=== PATIENT | male | born 1945 | race Hispanic/Latino ===

== ENCOUNTER → 2016-11-01 | Outpatient (REF) | payer MEDICARE, OTHER ==
[~2016-11-01] MED LIST: /TAMS4CA; AVOD0.5C; GLIP5TAB2; LEVA250T; ROSI4TA; VYTO10TA5
== END ==
LOC: M LAB REF 13:01
PROVIDERS: ATTEND Internal Medicine Nephrology
DX: N18.3 Chronic kidney disease, stage 3 (moderate) (principal); E11.9 Type 2 diabetes mellitus without complications; I10 Essential (primary) hypertension

== ENCOUNTER → 2016-11-12 | Outpatient (CLI) | payer MEDICARE, BC, OTHER ==
--- NOTE | 2016-11-12 13:43 | REP ---
RENAL AND BLADDER ULTRASOUND: Real-time sonographic evaluation of the left kidney performed in this patient status post right nephrectomy. Right renal fossa demonstrates no gross abnormality. Left kidney is normal in size and echotexture measuring 13.3 x 7.0 by 5.6 cm. There is no left renal mass, hydronephrosis or nephrolithiasis. Urinary bladder measures 8.4 x 6.6 x 6.0 cm for a total volume of 217 mL. There appears to be irregular wall thickening at the base of the bladder raising the possibility of bladder mass. After voiding, there is no postvoid residual in the urinary bladder, with complete emptying. IMPRESSION: Right renal fossa grossly unremarkable. Left kidney appears normal. Irregular soft tissue thickening at the base of the bladder, cannot rule out mass in this region. Signed by Dwight Ardon MD 11/13/2016 08:41 A
== END ==
LOC: M RAD 11:56
PROVIDERS: ATTEND Internal Medicine Nephrology
DX: N18.3 Chronic kidney disease, stage 3 (moderate) (principal); I12.9 Hypertensive chronic kidney disease with stage 1 through stage 4 chronic kidney disease, or unspecified chronic kidney disease

== ENCOUNTER → 2016-11-23 | Outpatient (REF) | payer MEDICARE, BC, OTHER | LOC: M SMT 13:43 | PROVIDERS: ATTEND Nurse Practitioner Women's Health | DX: N32.89 Other specified disorders of bladder (principal); Z79.899 Other long term (current) drug therapy; Z85.51 Personal history of malignant neoplasm of bladder | CPT/HCPCS: 81001; 87086; 88108; G0463 ==

== ENCOUNTER → 2019-09-11 | Outpatient (REF) | payer MEDICARE, BC, OTHER ==
[~2019-09-11] MED LIST changes: -/TAMS4CA; +FLOM0.4C39
== END ==
LOC: M SMT 18:02
PROVIDERS: ATTEND Urology
DX: Z85.51 Personal history of malignant neoplasm of bladder (principal)

== ENCOUNTER → 2020-09-12 | Outpatient (REF) | payer MEDICARE, OTHER | LOC: M SMT 18:54 | PROVIDERS: ATTEND Urology | DX: Z85.51 Personal history of malignant neoplasm of bladder (principal) ==

== ENCOUNTER 2021-03-10 03:28 | Emergency (ER) | payer MEDICARE, BC, OTHER ==
[~2021-03-10] VITALS: Ht 175.3 cm; Wt 86.8 kg
[2021-03-10 03:29] VITALS: BP 152/72
--- OUTSIDE RECORDS SUMMARY | 2021-03-10 03:36 | CCD ---
Author Author [facility] Organization [facility] Address Unknown Phone Unavailable Care Team Providers Care Parts Clerk Name Role Phone Maring, Darien PA Unavailable Unavailable Maring, Darien PA Unavailable Unavailable Maring, Darien PA Unavailable Unavailable Maring, Darien PA Unavailable Unavailable Maring, Darien PA Unavailable Unavailable Maring, Darien PA Unavailable Unavailable Maring, Darien PA Unavailable Unavailable Maring, Darien PA Unavailable Unavailable Maring, Darien PA Unavailable Unavailable Maring, Darien PA Unavailable Unavailable Maring, Darien PA Unavailable Unavailable Maring, Darien PA Unavailable Unavailable Maring, Darien PA Unavailable Unavailable Maring, Darien PA Unavailable Unavailable Maring, Darien PA Unavailable Unavailable Maring, Darien PA Unavailable Unavailable Ghada NEVES DPM Unavailable Unavailable Ghada NEVES DPM Unavailable Unavailable Ghada NEVES DPM Unavailable Unavailable Ghada NEVES DPM Unavailable Unavailable Ghada NEVES DPM Unavailable Unavailable Ghada NEVES DPM Unavailable Unavailable Ghada NEVES DPM Unavailable Unavailable Ghada NEVES DPM Unavailable Unavailable Ghada NEVES DPM Unavailable Unavailable Ghada NEVES DPM Unavailable Unavailable Ghada NEVES DPM Unavailable Unavailable Ghada NEVES DPM Unavailable Unavailable Ghada NEVES DPM Unavailable Unavailable Ghada NEVES DPM Unavailable Unavailable Ghada NEVES DPM Unavailable Unavailable PURA R GERRY DPM Unavailable Unavailable PURA R GERRY DPM Unavailable Unavailable MAJCHANDLER, R GERRY DPM Unavailable Unavailable MAJCHANDLER, R GERRY DPM Unavailable Unavailable MAJCHANDLER, R GERRY DPM Unavailable Unavailable MAJCHANDLER, R GERRY DPM Unavailable Unavailable PURA, R GERRY DPM Unavailable Unavailable MAJCHANDLER, R GERRY DPM Unavailable Unavailable MAJCHANDLER, R GERRY DPM Unavailable Unavailable MAJCHANDLER, R GERRY DPM Unavailable Unavailable PURA, R GERRY DPM Unavailable Unavailable MAJCAHNDLER, R GERRY DPM Unavailable Unavailable PURA, R GERRY DPM Unavailable Unavailable PURA, R GERRY DPM Unavailable Unavailable PURA, R GERRY DPM Unavailable Unavailable PURA, R GERRY DPM Unavailable Unavailable PURA R GERRY DPM Unavailable Unavailable PURA, R GERRY DPM Unavailable Unavailable Pam, Ghada Irwin MD Unavailable Unavailable Pam, Ghada Irwin MD Unavailable Unavailable Pam, Ghada Irwin MD Unavailable Unavailable Pam, Ghada Siddiqiorex MOLINA Unavailable Unavailable Pam, Ghada Siddiqiorex MOLINA Unavailable Unavailable Pam, Ghada Siddiqiorex MOLINA Unavailable Unavailable Pam, Ghada Siddiqiorex MOLINA Unavailable Unavailable Pam, Ghada Siddiqiorex MOLINA Unavailable Unavailable Pam, Ghada Siddiqiorex MOLINA Unavailable Unavailable Pam, Ghada Siddiqiorex MOLINA Unavailable Unavailable PamGhadaorex MOLINA Unavailable Unavailable Pam, Ghada Siddiqiorex MOLINA Unavailable Unavailable Pam, Ghada Siddiqiorex MOLINA Unavailable Unavailable PamGhadaorex MOLINA Unavailable Unavailable Pam, Ghada Siddiqiorex MOLINA Unavailable Unavailable PamGhadaorex MOLINA Unavailable Unavailable PamGhadaorex MOLINA Unavailable Unavailable PamGhadaorex MOLINA Unavailable Unavailable Pam R Dc MD Unavailable Unavailable Pam, Ghada Siddiqiorex MOLINA Unavailable Unavailable Pam, Ghada Siddiqiorex MOLINA Unavailable Unavailable Pam, Ghada Siddiqiorex MOLINA Unavailable Unavailable Pam, Ghada Siddiqiorex MOLINA Unavailable Unavailable PamGhadaorex MOLINA Unavailable Unavailable Pam, Ghada Siddiqiorex MOLINA Unavailable Unavailable Pam, Ghada Siddiqiorex MOLINA Unavailable Unavailable Pam, Ghada Siddiqiorex MOLINA Unavailable Unavailable PamGhadaorex MOLINA Unavailable Unavailable Pam, R Dc MD Unavailable Unavailable Pam, R Dc MD Unavailable Unavailable Pam, R Dc MD Unavailable Unavailable Pam, R Dc MD Unavailable Unavailable Pam, R Dc MD Unavailable Unavailable Pam, R Dc MD Unavailable Unavailable Pam, R Dc MD Unavailable Unavailable Pam, R Dc MD Unavailable Unavailable Pam, R Dc MD Unavailable Unavailable Pam, R Dc MD Unavailable Unavailable Pam, R Dc MD Unavailable Unavailable Pam, R Dc MD Unavailable Unavailable Pam, R Dc MD Unavailable Unavailable Pam, R Dc MD Unavailable Unavailable Pam, R Dc MD Unavailable Unavailable Pam, R Dc MD Unavailable Unavailable Pam, R Dc MD Unavailable Unavailable Pam, R Dc MD Unavailable Unavailable Pam, R Dc MD Unavailable Unavailable Pam, R Dc MD Unavailable Unavailable Pam, R Dc MD Unavailable Unavailable Pam, R Dc MD Unavailable Unavailable Pam, R Dc Unavailable Unavailable Pam, R Dc MD Unavailable Unavailable Pam, R Dc MD Unavailable Unavailable Pam, R Dc MD Unavailable Unavailable Pam, R Dc MD Unavailable Unavailable Pam, R Dc MD Unavailable Unavailable Pam, R Dc MD Unavailable Unavailable Pam, R Dc MD Unavailable Unavailable Pam, R Dc MD Unavailable Unavailable Pam, R Dc MD Unavailable Unavailable Pam, R Dc MD Unavailable Unavailable Pam, R Dc MD Unavailable Unavailable Pam, R Dc Unavailable Unavailable Pam, R Dc MD Unavailable Unavailable Pam, R Dc MD Unavailable Unavailable Pam, R Dc MD Unavailable Unavailable Pam, R Dc MD Unavailable Unavailable Pam, R Dc MD Unavailable Unavailable Pam, R Dc MD Unavailable Unavailable Pam, R Dc Unavailable Unavailable Pam, R Dc MD Unavailable Unavailable Pam, R Dc MD Unavailable Unavailable Pam, R Dc MD Unavailable Unavailable Pam, R Dc MD Unavailable Unavailable Pam, R Dc MD Unavailable Unavailable Pam, R Dc MD Unavailable Unavailable Pam, R Dc MD Unavailable Unavailable Pam, R Dc MD Unavailable Unavailable Pam, R Dc MD Unavailable Unavailable Re-disclosure Warning The records that you are about to access may contain information from federally-assisted alcohol or drug abuse programs. If such information is present, then the following federally mandated warning applies: This information has been disclosed to you from records protected by federal confidentiality rules (42 CFR part 2). The federal rules prohibit you from making any further disclosure of this information unless further disclosure is expressly permitted by the written consent of the person to whom it pertains or as otherwise permitted by 42 CFR part 2. A general authorization for the release of medical or other information is NOT sufficient for this purpose. The Federal rules restrict any use of the information to criminally investigate or prosecute any alcohol or drug abuse patient.The records that you are about to access may contain highly sensitive health information, the redisclosure of which is protected by Article 27-F of the [facility] Public Health law. If you continue you may have access to information: Regarding HIV / AIDS; Provided by facilities licensed or operated by the [facility] Office of Mental Health; or Provided by the [facility] Office for People With Developmental Disabilities. If such information is present, then the following [facility] mandated warning applies: This information has been disclosed to you from confidential records which are protected by state law. State law prohibits you from making any further disclosure of this information without the specific written consent of the person to whom it pertains, or as otherwise permitted by law. Any unauthorized further disclosure in violation of state law may result in a fine or mcc sentence or both. A general authorization for the release of medical or other information is NOT sufficient authorization for further disc losure. Allergies and Adverse Reactions Type Description Substance Reaction Status Data Source(s ) Drug allergy No Known Drug Allergies No Known Drug Allergies [facility] Food allergy No Known Food Allergies No Known Food Allergies [facility] Family History Family Member Name Family Member Gender Family Member Status Date o f Status Description Data Source(s) Unknown Condition [facility] Unknown Condition [facility] Unknown Condition [facility] Unknown Condition [facility] Unknown Condition [facility] Unknown Condition [facility] Unknown Condition [facility] Unknown Condition [facility] Unknown Condition [facility] Unknown Condition [facility] Unknown Condition [facility] Unknown Male Problem [facility] ([facility] Unknown Male Problem [facility] ([facility] ) Unknown Unknown Problem [facility] ([facility]) Encounters Encounter Providers Location Date Indications Data Source(s ) Outpatient Attender: Dc Orozco MDReferrer: Dc Orozco MD 01/24/2021 10:42:00 AM EDT - 01/24/2021 01:04:00 PM EDT [facility] Outpatient Attender: Dc Orozco MD 12/09/2020 07:34:00 AM EDT E11.9 [facility] E11.9 Outpatient Attender: Darien BANERJEE 11/25/19 09:15:11 AM EDT - 11/24/2020 09:37:43 AM EDT [facility] ([facility] ) Outpatient Attender: GERRY NEVES [facility] Office 10/07 01:45:00 PM EDT [facility] ([facility] Outpatient Attender: Dc QUINONEZeferrer: Dc Orozco MD 09/15/2020 01:16:00 PM EDT [facility] Outpatient Attender: Dc Orozco MD 09/13/2020 04:21:00 PM EDT E11.9 [facility] E11.9 (Cysto1) Urology [address] [place] [id number] 09/12/2020 12:00:00 AM EDT eCW1 ([facility]) Outpatient Attender: GERRY NEVES [facility] Office 07/08 01:45:00 PM EDT [facility] ([facility] Outpatient Attender: Dc QUINONEZeferrer: Dc Orozco MD 06/09/2020 01:05:00 PM EST - 06/09/2020 02:05:00 PM EST [facility] Outpatient Attender: Dc Orozco MD 06/07/2020 09:08:00 AM EST E11.9 [facility] E11.9 [facility]patient [facility] 02:30[facility]00 PM EST [facility] ([facility] Outpatient Attender: Dc Orozco MDReferrer: Dc Orozco MD 03/09/2020 12:47:00 PM EST - 03/09/2020 01:39:00 PM EST [facility] Outpatient Attender: Dc Orozco MD 03/09/2020 10:02:00 AM EST E11.9,I10 [facility] E11.9,I10 Outpatient Attender: GERRY NEVES [facility] 01/06 03:30:00 PM EDT [facility] ([facility] Immunizations Vaccine Date Status Description Data Source(s) COVID-19 VACCINE Moderna 01/23/2021 12:00:00 AM EDT completed [facility] Vaccine Series Complete: YESThis Data wa s Submitted to [facility] Via [employer]. COVID-19 Moderna 05/17/2020 12:00:00 AM EST completed [facility] COVID-19 Moderna 05/17/2020 12:00:00 AM EST completed COVID-19 [facility] COVID-19 VACCINE Moderna 05/17/2020 12:00:00 AM EST completed [facility] Vaccine Series Complete: YESThis Data wa s Submitted to [facility] Via [employer]. COVID-19 Moderna 04/19/2020 12:00:00 AM EST completed [facility] COVID-19 Moderna 04/19/2020 12:00:00 AM EST completed COVID-19 [facility] COVID-19 VACCINE Moderna 04/19/2020 12:00:00 AM EST completed [facility] Vaccine Series Complete: NOThis Data was Submitted to [facility] Via [employer]. IIV3. This is one of two codes replacing CVX 15, which is being retired. 03/09/2020 12:00:00 AM EST completed [facility] IIV3. This is one of two codes replacing CVX 15, which is being retired. 03/09/2020 12:00:00 AM EST completed influenza vaccine, inactivated [facility] IIV3. This is one of two codes replacing CVX 15, which is being retired. 03/09/2020 12:00:00 AM EST completed influenza vaccine, inactivated [facility] Medications Medication Brand Name Start Date Product Form Dose Route Admi nistrative Instructions Pharmacy Instructions Status Indications Reaction Description Data Source(s) 1,250 mcg (50,000 unit) 02/17/2021 12:00:00 AM EST capsule 12 TAKE ONE CAPSULE BY MOUTH EVERY WEEK TAKE ONE CAPSULE BY MOUTH EVERY WEEK SOLD: 02/20/2021 [facility] 100 mcg/0.5 mL 01/23/2021 12:00:00 AM EDT suspension 0 3RD DOSE INJECT DIRECTED PER STANDING ORDER 3RD DOSE INJECT DIRECTED PER STANDING ORDER SOLD: 01/23/2021 [facility] Diclofenac Sodium 0.01 MG/MG Topical Gel Diclofenac Sodium 10/27/2020 12:00:00 AM EDT active [facility] ([facility] 1 % 10/27/2020 12:00:00 AM EDT gel 100 APPLY 1 GRAM TO FOOT 2-3 TIMES PER DAY APPLY 1 GRAM TO FOOT 2-3 TIMES PER DAY SOLD: 10/27/2020 [facility] 3 ML liraglutide 6 MG/ML Pen Injector Li raglutide (Victoza 3-Domingo) 0.6 mg/0.1 mL (18 mg/3 mL) pen injector Liraglutide (Victoza 3-Domingo) 0.6 mg/0.1 m L (18 mg/3 mL) pen injector 09/19/2020 08:32:27 AM EDT 1.8 MG active [facility] empagliflozin 25 MG Oral Tablet Empagliflozin Empagliflozin 09/19/2020 08:32:25 AM EDT 25 MG active [facility] 25 mg 09/19/2020 12:00:00 AM EDT tablet 90 TAKE ONE TABLET BY MOUTH EVERY DAY IN THE MORNING TAKE ONE TABLET BY MOUTH EVERY DAY IN THE MORNING SOLD : 09/21/2020 [facility] 0.6 mg/0.1 mL (18 mg/3 mL) 09/19/2020 12:00:00 AM EDT pen in jector 27 INJECT 1.8MG UNDER THE SKIN DAILY INJECT 1.8MG UNDER THE SKIN DAILY SOLD: 12/22/2020 [facility] 25 mg 09/19/2020 12:00:00 AM EDT tablet 90 TAKE ONE TABLET BY MOUTH EVERY DAY IN THE MORNING TAKE ONE TABLET BY MOUTH EVERY DAY IN THE MORNING SOLD : 12/22/2020 [facility] 0.6 mg/0.1 mL (18 mg/3 mL) 09/19/2020 12:00:00 AM EDT pen in jector 27 INJECT 1.8MG UNDER THE SKIN DAILY INJECT 1.8MG UNDER THE SKIN DAILY SOLD: 09/21/2020 [facility] 24 HR Metformin hydrochloride 500 MG Extended Release Oral T ablet Metformin 09/15/2020 01:38:40 PM EDT 500 MG completed [facility] 32 gauge x 5/32" 06/11/2020 12:00:00 AM EST needle 90 USE WITH VICTOZA USE WITH VICTOZA SOLD: 06/14/2020 [facility] 32 gauge x 5/32" 06/11/2020 12:00:00 AM EST needle 90 USE WITH VICTOZA USE WITH VICTOZA SOLD: 10/11/2020 [facility] 32 gauge x 5/32" 06/11/2020 12:00:00 AM EST needle 90 USE WITH VICTOZA USE WITH VICTOZA SOLD: 12/22/2020 [facility] Pen Needle, Diabetic 06/09/2020 01:11:07 PM EST 1 EACH active [facility] Pen Needle, Diabetic 06/09/2020 01:11:07 PM EST 1 EACH active [facility] Cholecalciferol 38864 UNT Oral Capsule Cholecalciferol (Vitamin D3) Cholecalciferol (Vitamin D3) 06/09/2020 01:10:42 PM EST 625 MCG active [facility] Cholecalciferol 49525 UNT Oral Capsule Cholecalciferol (Vitamin D3) Cholecalciferol (Vitamin D3) 06/09/2020 01:10:42 PM EST 625 MCG [facility] 10 mg 05/30/2020 12:00:00 AM EST tablet 90 TAKE ONE TABLET BY MOUTH EVERY DAY TAKE ONE TABLET BY MOUTH EVERY DAY SOLD: 11/27/2020 [facility] 40 mg 05/30/2020 12:00:00 AM EST tablet 90 TAKE ONE TABLET BY MOUTH EVERY DAY TAKE ONE TABLET BY MOUTH EVERY DAY SOLD: 02/25/2021 [facility] 40 mg 05/30/2020 12:00:00 AM EST tablet 90 TAKE ONE TABLET BY MOUTH EVERY DAY TAKE ONE TABLET BY MOUTH EVERY DAY SOLD: 05/30/2020 [facility] 40 mg 05/30/2020 12:00:00 AM EST tablet 90 TAKE ONE TABLET BY MOUTH EVERY DAY TAKE ONE TABLET BY MOUTH EVERY DAY SOLD: 08/29/2020 [facility] 10 mg 05/30/2020 12:00:00 AM EST tablet 90 TAKE ONE TABLET BY MOUTH EVERY DAY TAKE ONE TABLET BY MOUTH EVERY DAY SOLD: 05/30/2020 [facility] 10 mg 05/30/2020 12:00:00 AM EST tablet 90 TAKE ONE TABLET BY MOUTH EVERY DAY TAKE ONE TABLET BY MOUTH EVERY DAY SOLD: 02/25/2021 [facility] 10 mg 05/30/2020 12:00:00 AM EST tablet 90 TAKE ONE TABLET BY MOUTH EVERY DAY TAKE ONE TABLET BY MOUTH EVERY DAY SOLD: 08/29/2020 [facility] 40 mg 05/30/2020 12:00:00 AM EST tablet 90 TAKE ONE TABLET BY MOUTH EVERY DAY TAKE ONE TABLET BY MOUTH EVERY DAY SOLD: 11/27/2020 [facility] pioglitazone 15 MG Oral Tablet Pioglitazone (Actos) 15 mg tablet Pioglitazone (Actos) 15 mg tablet 05/10/2020 09:50:05 AM EST 15 MG [facility] pioglitazone 15 MG Oral Tablet Pioglitazone (Actos) 15 mg tablet Pioglitazone (Actos) 15 mg tablet 05/10/2020 09:50:05 AM EST 15 MG [facility] pioglitazone 15 MG Oral Tablet PIOGLITAZONE HCL 05/10/2020 12:00 :00 AM EST tablet 90 TAKE ONE TABLET BY MOUTH EVERY D AY TAKE ONE TABLET BY MOUTH EVERY DAY SOLD: 05/11/2020 [facility] pioglitazone 15 MG Oral Tablet PIOGLITAZONE HCL 05/10/2020 12:00 :00 AM EST tablet 90 TAKE ONE TABLET BY MOUTH EVERY D AY TAKE ONE TABLET BY MOUTH EVERY DAY SOLD: 12/22/2020 [facility] pioglitazone 15 MG Oral Tablet PIOGLITAZONE HCL 05/10/2020 12:00 :00 AM EST tablet 90 TAKE ONE TABLET BY MOUTH EVERY D AY TAKE ONE TABLET BY MOUTH EVERY DAY SOLD: 10/11/2020 [facility] pioglitazone 15 MG Oral Tablet PIOGLITAZONE HCL 05/10/2020 12:00 :00 AM EST tablet 90 TAKE ONE TABLET BY MOUTH EVERY D AY TAKE ONE TABLET BY MOUTH EVERY DAY SOLD: 07/31/2020 [facility] 5 mg 05/07/2020 12:00:00 AM EST tablet 270 TAKE 2 TABLETS BY MOUTH IN THE MORNING AND 1 TABLET IN THE EVENING TAKE 2 TABLETS BY MOUTH IN THE MORNING A ND 1 TABLET IN THE EVENING SOLD: 08/06/2020 [facility] Glipizide 5 MG Oral Tablet GLIPIZIDE 05/07/2020 12:00:00 AM EST tablet 270 TAKE 2 TABLETS BY MOUTH IN THE MORNING AND 1 TABLET IN THE EVENING TAKE 2 TABLETS BY MOUTH IN THE MORNING AND 1 TABLET IN THE EVENING SOLD: 02/06/2021 [facility] 5 mg 05/07/2020 12:00:00 AM EST tablet 270 TAKE 2 TABLETS BY MOUTH IN THE MORNING AND 1 TABLET IN THE EVENING TAKE 2 TABLETS BY MOUTH IN THE MORNING A ND 1 TABLET IN THE EVENING SOLD: 11/04/2020 [facility] 5 mg 05/07/2020 12:00:00 AM EST tablet 270 TAKE 2 TABLETS BY MOUTH IN THE MORNING AND 1 TABLET IN THE EVENING TAKE 2 TABLETS BY MOUTH IN THE MORNING A ND 1 TABLET IN THE EVENING SOLD: 05/09/2020 [facility] pantoprazole 40 MG Delayed Release Oral Tablet PANTOPRAZOLE SODIUM 04/12/2020 12:00:00 AM EST tablet,delayed release (DR/EC) 90 T KATHIE ONE TABLET BY MOUTH EVERY DAY TAKE ONE TABLET BY MOUTH EVERY DAY SOLD: 04/19/2020 [facility] pantoprazole 40 MG Delayed Release Oral Tablet PANTOPRAZOLE SODIUM 04/12/2020 12:00:00 AM EST tablet,delayed release (DR/EC) 90 T KATHIE ONE TABLET BY MOUTH EVERY DAY TAKE ONE TABLET BY MOUTH EVERY DAY SOLD: 10/11/2020 [facility] pantoprazole 40 MG Delayed Release Oral Tablet PANTOPRAZOLE SODIUM 04/12/2020 12:00:00 AM EST tablet,delayed release (DR/EC) 90 T KATHIE ONE TABLET BY MOUTH EVERY DAY TAKE ONE TABLET BY MOUTH EVERY DAY SOLD: 07/28/2020 [facility] pantoprazole 40 MG Delayed Release Oral Tablet PANTOPRAZOLE SODIUM 04/12/2020 12:00:00 AM EST tablet,delayed release (DR/EC) 90 T KATHIE ONE TABLET BY MOUTH EVERY DAY TAKE ONE TABLET BY MOUTH EVERY DAY SOLD: 12/22/2020 [facility] Simvastatin 40 MG Oral Tablet Simvastatin 04/05/2020 11:02:21 AM EST 40 MG active [facility] Simvastatin 40 MG Oral Tablet Simvastatin 04/05/2020 11:02:21 AM EST 40 MG active [facility] Lisinopril 10 MG Oral Tablet Lisinopril 04/05/2020 11:02:11 AM EST 10 MG active [facility] Lisinopril 10 MG Oral Tablet Lisinopril 04/05/2020 11:02:11 AM EST 10 MG active [facility] Glipizide 5 MG Oral Tablet Glipizide 04/05/2020 11:02:03 AM EST 15 MG active [facility] Glipizide 5 MG Oral Tablet Glipizide 04/05/2020 11:02:03 AM EST 15 MG active [facility] pantoprazole 40 MG Delayed Release Oral Tablet Pantoprazole Pantoprazole 04/05/2020 11:01:56 AM EST 40 MG active [facility] pantoprazole 40 MG Delayed Release Oral Tablet Pantoprazole Pantoprazole 04/05/2020 11:01:56 AM EST 40 MG active [facility] Qd 2019-(3yr up)(PF) (flu vac [id number] 36mos up(P F)) 03/09/2020 12:47:24 PM EST 0.5 ML completed [facility] Qd 2019-(3yr up)(PF) (flu vac [id number] 36mos up(P F)) 03/09/2020 12:47:24 PM EST 0.5 ML completed [facility] Qd 2019-(3yr up)(PF) (flu vac [id number] 36mos up(P F)) 03/09/2020 12:47:24 PM EST 0.5 ML completed [facility] Glipizide 5 MG Oral Tablet Glipizide 11/27/2019 11:04:57 AM EDT 15 MG completed [facility] Glipizide 5 MG Oral Tablet Glipizide 11/27/2019 11:04:57 AM EDT 15 MG completed [facility] 5 mg 11/27/2019 12:00:00 AM EDT tablet 270 TAKE 2 TABLETS BY MOUTH IN THE MORNING, AND 1 TABKET AT NIGHT MAXIMUM DAILY DOSE = 3 TAKE 2 TABLETS BY MOUTH IN THE MORNING, AND 1 TABKET AT NIGHT MAXIMUM DAILY DOSE = 3 SOLD: 03/02/2020 [facility] 0.6 mg/0.1 mL (18 mg/3 mL) 09/21/2019 12:00:00 AM EDT pen in jector 27 INJECT 1.8MG SUBCUTANEOUSLY DAILY INJECT 1.8MG SUBCUTANEOUSLY DAILY SOLD: 04/05/2020 [facility] 0.6 mg/0.1 mL (18 mg/3 mL) 09/21/2019 12:00:00 AM EDT pen in jector 27 INJECT 1.8MG SUBCUTANEOUSLY DAILY INJECT 1.8MG SUBCUTANEOUSLY DAILY SOLD: 06/22/2020 [facility] 3 ML liraglutide 6 MG/ML Pen Injector Li raglutide (Victoza 3-Domingo) 0.6 mg/0.1 mL (18 mg/3 mL) pen injector Liraglutide (Victoza 3-Domingo) 0.6 mg/0.1 m L (18 mg/3 mL) pen injector 09/10/2019 01:36:58 PM EDT 1.8 MG completed [facility] 25 mg 08/28/2019 12:00:00 AM EDT tablet 90 TAKE ONE TABLET BY MOUTH EVERY MORNING TAKE ONE TABLET BY MOUTH EVERY MORNING SOLD: 03/30/2020 [facility] 25 mg 08/28/2019 12:00:00 AM EDT tablet 90 TAKE ONE TABLET BY MOUTH EVERY MORNING TAKE ONE TABLET BY MOUTH EVERY MORNING SOLD: 06/22/2020 [facility] empagliflozin 25 MG Oral Tablet Empagliflozin Empagliflozin 08/27/2019 02:13:36 PM EDT 25 MG completed [facility] Pen Needle, Diabetic 07/10/2019 07:48:21 AM EDT 1 EACH completed [facility] Pen Needle, Diabetic 07/10/2019 07:48:21 AM EDT 1 EACH completed [facility] 32 gauge x 5/32" 07/10/2019 12:00:00 AM EDT needle 90 USE WITH VICTOZA PEN USE WITH VICTOZA PEN SOLD: 01/20/2020 [facility] 32 gauge x 5/32" 07/10/2019 12:00:00 AM EDT needle 90 USE WITH VICTOZA PEN USE WITH VICTOZA PEN SOLD: 04/05/2020 [facility] Simvastatin 40 MG Oral Tablet Simvastatin 05/05/2019 09:56:31 AM EST 40 MG completed [facility] Simvastatin 40 MG Oral Tablet Simvastatin 05/05/2019 09:56:31 AM EST 40 MG completed [facility] pantoprazole 40 MG Delayed Release Oral Tablet Pantoprazole Pantoprazole 05/05/2019 09:56:25 AM EST 40 MG completed [facility] pantoprazole 40 MG Delayed Release Oral Tablet Pantoprazole Pantoprazole 05/05/2019 09:56:25 AM EST 40 MG completed [facility] Lisinopril 10 MG Oral Tablet Lisinopril 05/05/2019 09:56:21 AM EST 10 MG completed [facility] Lisinopril 10 MG Oral Tablet Lisinopril 05/05/2019 09:56:21 AM EST 10 MG completed [facility] 15 mg 05/05/2019 12:00:00 AM EST tablet 90 TAKE ONE TABLET BY MOUTH EVERY DAY TAKE ONE TABLET BY MOUTH EVERY DAY SOLD: 02/05/2020 [facility] 10 mg 05/05/2019 12:00:00 AM EST tablet 90 TAKE ONE TABLET BY MOUTH EVERY DAY TAKE ONE TABLET BY MOUTH EVERY DAY SOLD: 03/02/2020 [facility] 40 mg 05/05/2019 12:00:00 AM EST tablet 90 TAKE ONE TABLET BY MOUTH EVERY DAY TAKE ONE TABLET BY MOUTH EVERY DAY SOLD: 03/02/2020 [facility] pantoprazole 40 MG Delayed Release Oral Tablet PANTOPRAZOLE SODIUM 05/05/2019 12:00:00 AM EST tablet,delayed release (DR/EC) 90 T KATHIE ONE TABLET BY MOUTH EVERY DAY TAKE ONE TABLET BY MOUTH EVERY DAY SOLD: 02/05/2020 [facility] Insurance Providers Payer name Policy type / Coverage type Policy ID Covered alliance party ID Covered alliance party's relationship to [place] Policy [place] Plan Information [employer] () Workers Compensation [id number] Self [id number] [facility]) Workers Compensation [id number] Self [id number] [facility]) Workers Compensation [id number] Self [id number] [facility]) Workers Compensation [id number] Self [id number] [facility] Workers Compensation [id number] Self [id number] [facility] Workers Compensation [id number] Self [id number] [facility]) Workers Compensation [id number] Self 47 [id number] [facility]) Workers Compensation [id number] Self [id number] [facility]) Workers Compensation [id number] Self [id number] [facility]) Workers Compensation [id number] Self [id number] MEDICARE [id number] SP [id number] A Medicare [place] Medicare Primary [id number]. [id number] Self Medicare [place] Medicare Primary [id number] Self [id number] [facility] [id number] Self [id number] [facility] [id number] SP [id number] Medicare [place] Medicare Primary [id number] Self [id number] [facility] [id number] Self [id number] Medicare [place] Medicare Primary [id number] Self [id number] [facility] [id number] Self [id number] Medicare [place] Medicare Primary [id number] Self [id number] [facility] [id number] Self [id number] Medicare [place] Medicare Primary [id number] Self 45 [id number] [facility] [id number] Self [id number] Medicare [place] Medicare Primary [id number] Self [id number] [facility] [id number] Self [id number] Medicare [place] Medicare Primary [id number] Self 45 [id number] [facility] [id number] Self [id number] [facility] [id number] Self [id number] Medicare [place] Medicare Primary [id number] Self 45 [id number] [facility] [place] CCN [employer] [place] Plan/ 6011 Self [id number] MEDICARE [id number] SP [id number] MEDICARE C [id number] S [id number] A [facility]) O [id number] S [id number] Medicare Medicare Primary [id number]. [id number] Self [id number] A [id number] [facility] Part B [id number] Self [id number] [facility]-Medicare Part B [id number] ANS-Medicare Part B [id number] ANSI-Commercial [id number] MEDICARE [id number] SP [id number] A [facility] [id number] SP [id number] [facility] [id number] [facility] [id number] 89 [id number] [facility] [id number] [facility] Part B [id number] Self [facility] UNAVAILABLE UNAVAILABLE [id number] ANSI-Commercial [id number] Problems, Conditions, and Diagnoses Code Display Name Description Problem Type Effective Dates Data Source(s) M84.871 Osteochondropathy Osteochondropathy Problem 11/07/2020 12:00:00 AM EDT [facility] ([facility] M65.871 Peroneal tenosynovitis Peroneal tenosynovitis Problem 11/07/2020 12:00:00 AM EDT [facility] ([facility] Surgeries/Procedures Procedure Description Date Indications Data Source(s) Strapping Foot Or Ankle 10/27/2020 12:00:00 AM EDT [facility] ([facility] RADEX FOOT COMPLETE MINIMUM 3 VIEWS 10/27/2020 12:00:0 0 AM EDT [facility] ([facility] OFFICE OUTPATIENT VISIT 15 MINUTES 10/27/2020 12:00:00 AM EDT [facility] ([facility] Med: Lidocaine Jelly 2% 6ml Intravesically (Glydo) 09/12/2020 12:00:00 AM EDT [facility]CW1 ([facility]) TOBACCO USE ASSESSED 09/12/2020 12:00:00 AM EDT eCW1 ([facility]) OFFICE OUTPATIENT VISIT 10 MINUTES 07/28/2020 12:00:00 AM EDT [facility] ([facility] Results ID Date Data Source [id number] 01/24/2021 11:11:00 AM EDT [facility] Patient Name: ROGELIO SHANKS DO B: 1945 Sex: M Pt Unit #: [id number] Location:[facility] Provider: Visit Date/Time: 01/24/21 Primary Insurance: MEDICARE UPSTATE Secondary Insurance: [employer] Intake Vital Signs 01/24/21 11:18 Current Height 5 ft 9 in Current Weight 195 lb Weight Measurement Method Standing Scale BMI 28.8 BP 126/64 Blood Pressure Location Lt brachial Position Sitting Pulse 85 Pulse Strength Normal Pulse Source Pulse Oximeter Pulse Oximetry (%) 96 Oxygen Delivery Method room air Intake Visit Reasons: Annual Physical Nurse Note: Lower legs/toes will cramp at night x2 weeks. Shift Leader Required: No Accompanied by: Self / Same as Patient Is patient in pain?: No Allergies No Known Drug Allergies Allergy (Verified 06/09/20 20:22) No Known Food Allergies Allergy (Verified 06/09/20 20:22) Medications - Last Reconciled 01/24/21 by Dc Orozco M.D. acetaminophen 500 mg PO Q6HR PRN cholecalciferol (vitamin D3) 625 mcg PO .QD empagliflozin 25 mg PO QAM glipizide 15 mg (3 x 5 mg) PO QDAY liraglutide (Victoza 3-Domingo) 1.8 mg (0.3 mL) subcut DAILY lisinopril 10 mg PO DAILY pantoprazole 40 mg PO DAILY pen needle, diabetic use with victoza pen. BD 32 gauge x pioglitazone (Actos) 15 mg PO DAILY simvastatin 40 mg PO DAILY Vision Wearing glasses?: Yes Fall Risk History of falls: No Ambulatory Aid:: None Gait/Transferring:: Normal Medications:: Antihypertensives PHQ-2/9 Over the last 2 weeks, how often have you been bothered by any of the following problems? 1. Little interest or pleasure in doing things: not at all 2. Feeling down, depressed, or hopeless: not at all Total score: 0 3. Trouble falling or staying asleep, or sleeping too much: not at all 4. Feeling tired or having little energy: not at all 5. Poor appetite or overeating: not at all 6. Feeli ng bad about yourself - or that you are a failure or have let yourself and your family down:not at all 7. Trouble concentrating on things, such as reading the newspaper or watching television: not at all 8. Moving or speaking so slowly that other people could have noticed? - Or the opposite - being so fidgety or restless that you have been moving around a lot more than usual: not at all 9. Thoughts that you would be better off or of hurting yourself in some way: not at all Total score: 0 If you checked off any problems, how difficult have these problems made it for you to do your work, take care of things at home, or get along with other people?: not difficult at all Source: Developed by Drs. Usman Lui, Flavia Queen, Ranulfo Pagan and colleagues, with an educational damaris from [employer]. HIV Testing Offer - ages 13-64 HIV testing Offer: No Requirement for HIV testing offer been met?: Not in age range SBIRT Annual Questionnaire Are you currently in recovery for alcohol or substance use?: No How many times in the past year have you had 5 or more drinks in a day?: None How many times in the past year have you used a recreational drug or used a prescription medication for nonmedical reasons?: None Do you need a note to return Do you need a note to return to daycare/school/sports/work: No Coronavirus Screening Screening Are you currently positive or on isolation for COVID ?: No Do you have any NEW signs of one or more of the following?: no symptoms Do you have NEW signs of at least two of the following?: no symptoms HPI Additional HPI HPI Details: Patient has problems including diabetes, hypertension, hyperlipidemia and CKD. He came to the office for his annual physical. He complained of nocturnal restlessness of his legs. He has some cr amping pain in his toes. This wakes him up from his sleep. He is able to walk it off. He has nodifficulties during the daytime. He admits to compliance with his medications without any side effects. [facility] Medical History (Updated 01/24/21 @ 12:07 by Dc Orozco M.D.) Achilles tendinitis Bladder cancer Charcot's arthropathy Chronic kidney disease, stage 3b Ectopic beats Enlarged prostate Essential hypertension (04/03/16) Hypovitaminosis D (04/03/16) Kidney disease Kidney stones Measles Mixed hyperlipidemia (04/03/16) Mumps Type 2 diabetes mellitus without complication, without long-term current use of insulin Surgical History (Updated 01/24/21 @ 11:49 by Dc Orozco M.D.) Bladder cancer History of back surgery History of cataract surgery (11/29/20) History of nephrectomy, right History of shoulder surgery Trigger finger of right hand Family History (Updated 01/24/21 @ 11:48 by Dc Orozco M.D.) Mother Depression Father Diabetes Hypertension Heart disease Sister Obesity Brother Heart disease Son No problems noted. Son No problems noted. Social History Does the Patient have a Healthcare Proxy: No Does Patient have a DNR?: No Does Patient have a Living Will?: No marital status: highest education level compl eted: some college, no degree service: Yes current occupational status: retired current occupational exposures/hazards: Yes pets and animals: Yes leisure activities: sports Hx Recent Travel (where): No caffeine: Yes Type: carbonated beverages and coffee high-fat food intake: 0- 1 times daily daily servings fruits/ve-4 daily servings of milk/calcium: 0-1 eating out: 1-3 times/week reads food labels: seldom or never during the past year weight has: decreased > 10 lbs what type of physical activity do you participate in?: walking Smoking Status: Former paula fermin how long ago did patient quit smoking: minimal smoking alcohol intake: former details: drank while in [place] Review of Systems Const Denies anorexia, Denies excessive sweating, Denies fatigue, Denies fever(s) and Denies headache(s) Eyes Denies blurry vision, Denies change in vision, Denies dry eyes, Denies irritation, Denies itchy eyesand Denies loss of vision ENT Denies abnormal hearing, Denies dysphagia, Denies dizziness, Denies headache(s), Denies lip swelling, Denies disequilibrium, Denies sore throat and Denies throat swelling Card Denies chest pain, Denies pedal edema, Denies lightheadedness, Denies palpitations and Denies dyspnea Resp Denies cough, Denies excessive phlegm production, Denies pain on inspiration, Denies dyspnea and Denies wheezing GI Denies abdominal pain, Denies change in bowel habits, Denies dysphagia, Denies early satiety, Deniesheartburn, Denies diarrhea, Denies nausea and Denies vomiting Denies difficulty urinating, Denies flank pain, Denies urinary frequency, Denies urinary incontinence and Denies urinary urgency Musc Denies back pain, Denies arthralgias, Denies limited range of motion, Reports muscle cramps (both legs and toes at night) and Denies muscle weakness Skin/Breast Denies change in pigmentation, Denies lesions, Denies nail changes, Denies rash and Denies unusual bruising Neuro Denies abnormal hearing, Denies dizziness, Denies headache(s), Denies loss of vision, Denies memory loss, Denies paresthesias and Denies disequilibrium Psych Reports abnormal sleep pattern (From the stress of caring for his disabled ), Denies anxiety, Denies change in appetite, Denies depression, Denies irritability and Denies memory loss Endo Denies cold intolerance, Denies excessive sweating, Denies fatigue, Denies jovita yphagia, Denies polydipsia, Denies polyuria and Denies palpitations Wilfredo/Lymph Denies easy bleeding, Denies easy bruising and Denies lymphadenopathy Aller/Immun Denies urticaria, Denies itchy eyes, Denies lip swelling, Denies seasonal rhinorrhea, Denies throat swelling and Denies wheezing Exam Const General: cooperative, healthy appearing, no acute distress, well developed and well groomed Nutritional Appearance: overweight Orientation: alert and awake [facility] Head: normal to inspection Ears: hearing grossly normal bilaterally Eyes General: appearance normal, both eyes and all related structures Pupils: PERRL Neck Neck: normal visual inspection, no lymphadenopathy, supple and no JVD present Carotids: normal carotid upstroke Resp Effort Inspection: normal respiratory effort Auscultation: clear to auscultation bilaterally Percussion: percussion normal Cardio Jugular venous pressure: no JVD Rate: regular rate Rhythm: abnormal rhythm with ectopic beats (Identified as PACs on an EKG) Heart Sounds: S1 normal and S2 normal GI Inspection: Yes normal to inspection Palpation: soft and nontender Auscultation: normal bowel sounds General: No CVA tenderness Musc Cervical Spine: normal cervical lordosis Thoracic/Lumbar Spine: thoracic and lumbar spine normal to inspection Other: Right foot deformity along the lateral margin midfoot Skin Lesions: no lesions Neuro General: patient alert, patient awake, gait normal, tone normal, moves all extremities and normal light touch, pain and propioception Cognition: normal cognition Speech: speech normal DTR's: Rt Patellar: 2+ and Lt Patellar: 2+ Extrem General: normal to inspection and no clubbing, cyanosis or edema Psych Appearance: grossly normal and well kempt Mental Status: mental status grossly normal Speech and Movement: speech and movement normal Quality Reporting Depression/Bipolar (159/160/161/169/177) Total score: 0 Assessment Plan Assessment Plan (1) Encounter for annual health examination: Code(s): Z00.00 - Encounter for general adult medical examination without abnormal findings Plan: Annual visit today. Personal history was updated. Medication record was updated. Results of the annual blood work were discussed with the patient in detail. Comprehensive review of systems was done. Comprehensive examination was done. Depression questionnaire was reviewed. (2) Type 2 diabetes mellitus without complication, without long-term current use of insulin: Status: Chronic Code(s): E11.9 - Type 2 diabetes mellitus without complications SNOMED Code(s): 139110317 Category: Medical Plan: A1c is stable at 7.6. Patient promises to do better with his diet and exercise regimen. (3) Essential hypertension: Status: Chronic Onset Date: 04/03/16 Code(s): I10 - Essential (primary) hypertension SNOMED Code(s): 54837008 Category: Medical Plan: Blood pressure is well controlled on the current regimen. Patient was advised to follow a low-salt diet. Additional time was spent with the patient discussing the hypertension plan of care. (4) Mixed hyperlipidemia: Status: Chronic Onset Date: 04/03/16 Code(s): E78.2 - Mixed hyperlipidemia SNOMED Code(s): 327853606 Category: Medical Plan: Results of the lipid panel were discussed with the patient. Triglycerides are slightly elevated. HDL is low increasing the risk of cardiovascular disease. (5) Chronic kidney disease, stage 3b: Status: Acute Code(s): N18.32 - Chronic kidney disease, stage 3b SNOMED Code(s): 320367295 Category: Medical Plan: Creatinine is 2.1 and GFR is 31. Patient has a solitary kidney. (6) Charcot's arthropathy: Status: Acute Code(s): M14.60 - Charcot's joint, unspecified site SNOMED Code(s): 378996579 Category: Medical Plan: Patient states that his right foot pain has improved significantly. Plan: Patient came for his annual evaluation. He will return at the end of 3 months for a recheck. Orders: Orders BMP 3 Months E11.9 - Type 2 diabetes mellitus without complications HGBA1C + EAG 3 Months E11.9 - Type 2 diabetes mellitus without complications Additional Comments Additional Comments: Certain parts of this note may have been carried over from prior notes to maintain accuracy of the patient's pertinent medical history and continuity of care. The details were verified and edited asappropriate. This document was dictated using [employer] speech recognition software. A reasonable attempt to proofread has been made to minimize errors. Please call if you notice any errors or have any questions. 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: Annual evaluation for this patient with problems including diabetes, hypertension, hyperlipidemia and chronic kidney disease with new complaint of nocturnal leg cramps Exam Comprehensive Diagnoses Encounter for annual health examination Z00.00 Type 2 diabetes mellitus without complication, without long-term current use of insulin E11.9 Essential hypertension I10 Mixed hyperlipidemia E78.2 Chronic kidney disease, stage 3b N18.32 Charcot's arthropathy M14.60 Additional Codes Intake - Is patient in pain?: No ([id number]) <Electronically signed by Dc Orozco MD> 01/24/212048 Name Value Range Interpretation Code Description Data Mallika rce(s) Supporting Document(s) ID Date Data Source [id number] 12/09/2020 08:27:00 AM EDT [facility] Method of Collection:: Voided Name Value Range Interpretation Code Description Data Mallika rce(s) Supporting Document(s) Color of Urine [facility] Appearance of Urine CLEAR Abnormal (applies to non-nu meric results) [facility] pH of Urine by Test strip 5.5 5-8 [facility] Specific gravity of Urine by Refractometry 1.029 1.005-1.030 [facility] Leukocyte esterase [Presence] in Urine by Test strip NEGAT RADHAMES [facility] Nitrite [Presence] in Urine by Test strip NEGATIVE [facility] Protein [Presence] in Urine by Test strip NEGATIVE [facility] Glucose [Mass/volume] in Urine by Automated test strip > 1000 mg /dl NEGATIVE Abnormal (applies to non-numeric results) [facility] Ketones [Presence] in Urine by Test strip NEGATIVE [facility] Urobilinogen [Presence] in Urine 0.2-1 EU/dl [facility] Bilirubin.total [Presence] in Urine by Automated test strip NEGATIVE [facility] Erythrocytes [#/volume] in Urine by Test strip NEGATIVE NEGATIVE [facility] URINE MICROSCOPIC ADDED NO [facility] ID Date Data Source [id number] 12/09/2020 12:07:00 PM EDT [facility] Method of Collection:: Voided Name Value Range Interpretation Code Description Data Mallika rce(s) Supporting Document(s) Urine Random Creatinine 118.0 mg/dL [facility] THERE IS NO ESTABLISHED RANGE FOR RANDOM URINE CREATININE Urine Microalbumin 10.9 mg/L 0.0-29.9 N [facility] Ur Malb/Cre Ratio (ACR) 9.2 ug/mg 0.0-30.0 N [facility] ID Date Data Source [id number] 12/09/2020 07:51:00 AM EDT [facility] Method of Collection:: Voided Name Value Range Interpretation Code Description Data Mallika rce(s) Supporting Document(s) Leukocytes [#/volume] in Blood by Automated count 5.9 10*3/uL 4.45-10 .71 N [facility] Erythrocytes [#/volume] in Blood by Automated count 5.12 10*6/uL 4.3- 6.1 N [facility] Hemoglobin [Moles/volume] in Blood 14.0 g/dL 13-18 N [facility] Hematocrit [Volume Fraction] of Blood by Automated count 43.7 % 4 2-52 N [facility] Erythrocyte mean corpuscular volume [Ent itic volume] in Cord blood by Automated count 85 fL 80-96 N [facility] ital Erythrocyte mean corpuscular hemoglobin [Entitic mass] by Au tomated count 27 pg 27-31 N [facility] Erythrocyte mean corpuscular hemoglobin concentration [Mass/volume] in Cord blood 32 g/dL 33-37 Below low normal [facility] Erythrocyte distribution width [Entitic volume] by Automated count 15 % 11-15 N [facility] Platelets [#/volume] in Blood by Automated count 198 10*3/uL 130-472 N [facility] Platelet mean volume [Entitic volume] in Blood 10.6 fL 9.1-13.1 N [facility] Neutrophils/100 leukocytes in Blood by Automated count 64.7 % 41- 77 N [facility] Neutrophils [#/volume] in Blood by Automated count 3.8 U 1.7-7.6 N [facility] Lymphocytes/100 leukocytes in Blood by Automated count 22.5 % 14- 46 N [facility] Lymphocytes [#/volume] in Blood by Automated count 1.3 U 0.6-4.6 N [facility] Monocytes/100 leukocytes in Blood by Automated count 9.9 % 4-12 N [facility] Monocytes [#/volume] in Blood by Automated count 0.6 U 0.2-1.2 N [facility] Eosinophils/100 leukocytes in Blood by Automated count 2.2 % 0-7 N [facility] Eosinophils [#/volume] in Blood by Automated count 0.1 U 0.0-0.5 N [facility] Basophils/100 leukocytes in Blood by Automated count 0.5 % 0.4-1 .3 N [facility] Basophils [#/volume] in Blood by Automated count 0.0 U 0.0-0.2 N [facility] NUCLEATED RED BLOOD CELL 0 % [facility] NUCLEATED RED BLOOD CELL# 0 U [place] Immature granulocytes [Presence] in Blood by Automated count 0-2 N [facility] Immature granulocytes [#/volume] in Blood by Automated count 0.0 U 0-0.1 N [facility] Manual Differential panel - Blood NO [facility] ID Date Data Source [id number] 12/09/2020 08:10:00 AM EDT [facility] Method of Collection:: Voided Name Value Range Interpretation Code Description Data Mallika rce(s) Supporting Document(s) Hemoglobin A1c [Mass/volume] in Blood 7.6 % 3.8-5.6 Above hig h normal [facility] The following ranges may be u sed for interpretation of results: HGBA1C degree of glucose control: Greater than 8%: Action Suggested * Less than 7%: Goal of Diabetic Therapy Less than 5.6%: NormalFactors such as duration of diabetes, adherence to therapyand the age of the patient should also be considered inassessing the degree of blood glucose control.* High risk of developing correction complications such asretinopathy, nephropathy, neuropathy, cardiopathy, etc. Some danger of hypoglycemic reaction in Type I diabetics.Some glucose intolerant individuals and "Sub Clinical"diabetics may demonstrate HGBA1C levels in this area. Glucose mean value [Moles/volume] in Blood Estimated f rom glycated hemoglobin 171 mg/dL [facility] l An A1C of 7% - the goal of diabetic ther apy - is equivalentto an EAG of 154 mg/dl. ID Date Data Source [id number] 12/09/2020 08:36:00 AM EDT [facility] Method of Collection:: Voided Name Value Range Interpretation Code Description Data Mallika rce(s) Supporting Document(s) Urea nitrogen [Mass/volume] in Serum or Plasma 33 mg/dL 9-23 Above high normal [facility] Sodium [Moles/volume] in Serum or Plasma 142 mmol/L 132-146 N [facility] Potassium [Moles/volume] in Serum or Plasma 4.0 mmol/L 3.5-5.5 N [facility] Chloride [Moles/volume] in Serum or Plasma 112 mmol/L 99-109 Above high normal [facility] Carbon dioxide, total [Moles/volume] in Serum or Plasma 24 mmol/L 20 -31 N [facility] Anion gap in Serum or Plasma 10 mmol/L 8-16 N L [facility] Glucose [Mass/volume] in Serum or Plasma 149 mg/dL 74-106 Above high normal [facility] Creatinine 2.1 mg/dL 0.5-1.1 Above high normal [facility] Glomerular filtration rate/1.73 sq M.pre dicted [Volume Rate/Area] in Serum or Plasma 31 ml/min ABOVE 60 [facility] ital Alanine aminotransferase [Enzymatic acti vity/volume] in Serum or Plasma by With P-5'-P 19 U/L 10-49 N [facility] ital Aspartate aminotransferase [Enzymatic ac tivity/volume] in Serum or Plasma by With P-5'-P 14 U/L 0-33 N [facility] pital Alkaline phosphatase [Enzymatic activity/volume] in Serum or Plasma 91 U/L 45-129 N [facility] Calcium [Mass/volume] in Serum or Plasma 8.1 mg/dL 8.5-10.1 Below low normal [facility] Bilirubin.total [Mass/volume] in Serum or Plasma 0.5 mg/dL 0.3-1.2 N [facility] Albumin [Mass/volume] in Serum or Plasma by Bromocresol purple (BCP) dye binding method 3.4 g/dL 3.2-4.8 [facility] ital Protein [Mass/volume] in Serum or Plasma 6.8 g/dL 5.7-8.2 [facility] ID Date Data Source [id number] 12/09/2020 08:36:00 AM EDT [facility] Method of Collection:: Voided Name Value Range Interpretation Code Description Data Mallika rce(s) Supporting Document(s) Triglycerides 192 mg/dL 0-150 Above high normal [facility] Cholesterol 158 mg/dL 120-200 [facility] HDL Cholesterol 39 mg/dL [facility] HDL Less than 40 mg/dL: Major risk for CHDHDL Greater than 59 mg/dL: Low risk for CHD LDL Cholesterol, Calc 81 mg/dL 0-100 N [facility] ID Date Data Source [id number] 11/24/2020 09:30:00 AM EDT [facility] Name Value Range Interpretation Code Description Data Mallika rce(s) Supporting Document(s) SARS-CoV-2 RNA Resp Ql SEKOU+probe NOT DETECTED [facility] This lab was ordered by DANILO florence and reported by DANILO Diamond. ID Date Data Source [id number] 09/15/2020 01:15:00 PM EDT [facility] Patient Name: ROGELIO SHANKS DO B: 1945 Sex: M Pt Unit #: [id number] Location:[facility] Provider: Visit Date/Time: 09/15/20 Primary Insurance: MEDICARE [employer] Secondary Insurance: [employer] Intake Vital Signs 09/15/20 13:15 Current Height 5 ft 9 in Current Weight 202 lb Weight Measurement Method Standing Scale BMI 29.8 BP 122/68 Blood Pressure Location Lt brachial Position Sitting Pulse 79 Pulse Strength Normal Pulse Source Pulse Oximeter Pulse Oximetry (%) 97 Oxygen Delivery Method room air Intake Visit Reasons: Diabetes Nurse Note: Pain/swelling in right foot off/on x3 months. Pt takes OTC Tylenol for pain management. Shift Leader Required: No Accompanied by: Self / Same as Patient Is patient in pain?: No Allergies No Known Drug Allergies Allergy (Verified 06/09/20 20:22) No Known Food Allergies Allergy (Verifie d 06/09/20 20:22) Medications - Last Reconciled 09/15/20 by Dc Orozco M.D. acetaminophen 500 mg PO Q6HR PRN cholecalciferol (vitamin D3) 625 mcg PO .QD empagliflozin 25 mg PO QAM glipizide 15 mg (3 x 5 mg) PO QDAY liraglutide (Victoza 3-Domingo) 1.8 mg (0.3 mL) subcut DAILY lisinopril 10 mg PO DAILY pantoprazole 40 mg PO DAILY pen needle, diabetic use with victoza pen. BD 32 gauge x 5/32 pioglitazone (Actos) 15 mg PO DAILY simvastatin 40 mg PO DAILY Vision Wearing glasses?: Yes Fall Risk History of falls: No Ambulatory Aid:: None Gait/Transferring:: Normal Medications:: Antihypertensives HIV Testing Offer - ages 13-64 HIV testing Offer: No Requirement for HIV testing offer been met?: Not in age range Do you need a note to return Do you need a note to return to daycare/school/sports/work: No Coronavirus Screening Screening Are you currently positive or on isolation for COVID ?: No Do you have any NEW signs of one or more of the following?: no symptoms Do you have NEW signs of at least two of the following?: no symptoms HPI Additional HPI HPI Details: Patient with multiple problems including diabetes, hypertension, hyperlipidemia, vitamin D deficiency and kidney stones came to the office for his follow-up visit. He complained of some swelling along the lateral margin of his right foot. He has no other complaints. [facility] Medical History (Updated 09/15/20 @ 14:00 by Dc Orozco M.D.) Achilles tendinitis Bladder cancer Charcot's arthropathy Chronic kidney disease, stage 3b Enlarged prostate Essential hypertension (04/03/16) Hypovitaminosis D (04/03/16) Kidney disease Kidney stones Measles Mixed hyperlipidemia (04/03/16) Mumps Type 2 diabetes mellitus without complication, without long- term current use of insulin Surgical History (Updated 09/15/20 @ 13:36 by Dc Orozco M.D.) Bladder cancer History of back surgery History of nephrectomy, right History of shoulder surgery Trigger finger of right hand Family History Mother Depression Father Diabetes Hypertension Sister No problems noted. Brother No problems noted. Social History Does the Patient have a Healthcare Proxy: No Does Patient have a DNR?: No Does Patient have a Living Will?: No marital status: highest education level completed: some college, no degree service: Yes current occupational status: retired current occupational exposures/hazards: Yes pets and animals: Yes leisure activities: sports Hx Recent Travel (where): No caffeine: Yes Type: carbonated beverages and coffee high-fat food intake: 0-1 times daily daily servings fruits/ve-4 daily servings of milk/calcium: 0-1 eating out: 1-3 times/week reads food labels: seldom or never during the past year weight has: decreased > 10 lbs Smoking Status: Former smoker how long ago did patient quit smoking: minimal smoking alcohol intake: former details: drank while in [place] Review of Systems Const Denies anorexia, Denies fatigue, Denies fever(s), Denies headache(s) and Denies weight loss ENT Denies dysphagia, Denies dizziness, Denies headache(s) and Denies disequilibrium Card Denies chest pain, Denies pedal edema, Denies lightheadedness, Denies palpitations and Denies dyspnea Resp Denies cough, Denies excessive phlegm production, Denies pain on inspiration, Denies dyspnea and Denies wheezing GI Denies abdominal pain, Denies change in bowel habits, Denies dysphagia, Denies early satiety, Deniesheartburn, Denies diarrhea, Denies nausea and Denies vomiting Musc Denies arthralgias, Denies numbness, Denies tingling and Reports other (Right foot swelling and discomfort) Neuro Denies dizziness, Denies headache(s), Denies memory loss, Denies numbness, Denies tingling, Denies paresthesias and De nies disequilibrium Psych Denies memory loss Endo Denies fatigue and Denies palpitations Aller/Immun Denies wheezing Exam Const General: cooperative, healthy appearing, no acute distress, well developed and well groomed Nutritional Appearance: overweight Orientation: alert and awake Eyes Pupils: PERRL Neck Neck: normal visual inspection, no lymphadenopathy, supple and no JVD present Carotids: normal carotid upstroke Resp Effort Inspection: normal respiratory effort Auscultation: clear to auscultation bilaterally Percussion: percussion normal Cardio Jugular venous pressure: no JVD Rate: regular rate Rhythm: regular rhythm Heart Sounds: S1 normal and S2 normal GI Inspection: Yes normal to inspection Palpation: soft and nontender Auscultation: normal bowel sounds Musc Other: Right foot deformity along the lateral margin midfoot Neuro General: gait normal Extrem General: normal to inspection and no clubbing, cyanosis or edema Assessment Plan Assessm ent Plan (1) Type 2 diabetes mellitus without complication, without long-term current use of insulin: Status: Chronic Code(s): E11.9 - Type 2 diabetes mellitus without complications SNOMED Code(s): 282960323 Category: Medical Plan: A1c has risen to 7.6. Patient promises to do better with his diet and exercise regimen. (2) Essential hypertension: Status: Chronic Onset Date: 04/03/16 Code(s): I10 - Essential (primary) hypertension SNOMED Code(s): 24784843 Category: Medical Plan: Blood pressure is well controlled on the current regimen. Patient was advised to follow a low-salt diet. Additional time was spent with the patient discussing the hypertension plan of care. (3) Mixed hyperlipidemia: Status: Chronic Onset Date: 04/03/16 Code(s): E78.2 - Mixed hyperlipidemia SNOMED Code(s): 525778550 Category: Medical Plan: Patient was reminded of the importance of following a low-fat diet. This should also help him lose additional weight. (4) Chronic kidney disease, stage 3b: Status: Acute Code(s): N18.32 - Chronic kidney disease, stage 3b SNOMED Code(s): 617880802 Category: Medical Plan: Creatinine is 2 and GFR is 33. Patient has a solitary kidney. Medication regimen is renally adjusted. (5) Charcot's arthropathy: Status: Acute Code(s): M14.60 - Charcot's joint, unspecified site SNOMED Code(s): 878025427 Category: Medical Plan: Patient's right foot discomfort appears to be secondary to Charcot's arthropathy. He has a fur dressing supervisor involved in his care and will be discussing this with him. Plan: Patient with above-described problems came for 3- month checkup. His next visit will be his annual physical. Additional Comments Additional Comments: Certain parts of this note may have been carried over from prior notes to maintain accuracy of the patient's pertinent medical history and continuity of care. The details were verified and edited as appropriate. This document was dictated using Fiberspar speech recognition software. A reasonable attempt to proofread has been made to minimize errors. Please call if you notice any errors or have any questions. 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: Patient with complex medical problems including poorly controlled diabetes and renal insufficiency in the setting of solitary kidney Exam Comprehensive Diagnoses Type 2 diabetes mellitus without complication, without long-term current use of insulin E11.9 Essential hypertension I10 Mixed hyperlipidemia E78.2 Chronic kidney disease, stage 3b N18.32 Charcot's arthropathy M14.60 <Electronically signed by Dc Orozco MD> 09/15/20 1401 Name Value Range Interpretation Code Description Data Mallika rce(s) Supporting Document(s) ID Date Data Source [id number] 09/13/2020 05:50:00 PM EDT [facility] Name Value Range Interpretation Code Description Data Mallika rce(s) Supporting Document(s) Urea nitrogen [Mass/volume] in Serum or Plasma 29 mg/dL 9-23 Above high [facility] Sodium [Moles/volume] in Serum or Plasma 141 mmol/L 132-146 N [facility] Potassium [Moles/volume] in Serum or Plasma 4.0 mmol/L 3.5-5.5 N [facility] Chloride [Moles/volume] in Serum or Plasma 109 mmol/L 99-109 N [facility] Carbon dioxide, total [Moles/volume] in Serum or Plasma 26 mmol/L 20 -31 N [facility] Anion gap in Serum or Plasma 10 mmol/L 8-16 [facility] Glucose [Mass/volume] in Serum or Plasma 179 mg/dL 74-106 Above high [facility] Creatinine 2.0 mg/dL 0.5-1.1 Above high normal [facility] Glomerular filtration rate/1.73 sq M.pre dicted [Volume Rate/Area] in Serum or Plasma 33 ml/min ABOVE 60 [facility] ital Calcium [Mass/volume] in Serum or Plasma 8.0 mg/dL 8.5-10.1 Below low normal [facility] ID Date Data Source [id number] 09/13/2020 05:53:00 PM EDT [facility] Name Value Range Interpretation Code Description Data Mallika rce(s) Supporting Document(s) Hemoglobin A1c [Mass/volume] in Blood 7.6 % 3.8-5.6 Above hig h [facility] The following ranges may be u sed for interpretation of results: HGBA1C degree of glucose control: Greater than 8%: Action Suggested * Less than 7%: Goal of Diabetic Therapy Less than 5.6%: NormalFactors such as duration of diabetes, adherence to therapyand the age of the patient should also be considered inassessing the degree of blood glucose control.* High risk of developing correction complications such asretinopathy, nephropathy, neuropathy, cardiopathy, etc. Some danger of hypoglycemic reaction in Type I diabetics.Some glucose intolerant individuals and "Sub Clinical"diabetics may demonstrate HGBA1C levels in this area. Glucose mean value [Moles/volume] in Blood Estimated f rom glycated hemoglobin 171 mg/dL [facility] An A1C of 7% - the goal of diabetic ther apy - is equivalentto an EAG of 154 mg/dl. ID Date Data Source [employer]IDENT [employer] CYTOLOGY REQ FOR SERVI 09/12/2020 12:00:00 AM EDT eC W1 ([facility]) Name Value Range Interpretation Code Description Data Mallika rce(s) Supporting Document(s) URINE eCW1 ([facility]) ID Date Data Source [id number] 06/09/2020 01:03:00 PM [facility] Patient Name: ROGELIO SHANKS DO B: 1945 Sex: M Pt Unit #: [id number] Location:[facility] Provider: Visit Date/Time: 06/09/20 Primary Insurance: MEDICARE [employer] Secondary Insurance: [employer] Intake Vital Signs 06/09/20 13:04 Current Height 5 ft 9 in Current Weight 201 lb Weight Measurement Method Standing Scale BMI 29.7 BP 118/70 Blood Pressure Location Lt brachial Position Sitting Pulse 86 Pulse Strength Normal Pulse Source Pulse Oximeter Pulse Oximetry (%) 98 Oxygen Delivery Method room air Intake Visit Reasons: Diabetes Nurse Note: N/C Shift Leader Required: No Accompanied by: Self / Same as Patient Is patient in pain?: No Allergies No Known Drug Allergies Allergy (Verified 06/09/20 20:22) No Known Food Allergies Allergy (Verified 06/09/20 20:22) Medications - Last Reconciled 06/09/20 by Dc Orozco M.D. acetaminophen 500 mg PO Q6HR PRN cholecalciferol (vitamin D3) 625 mcg PO .QD empagliflozin 25 mg PO QAM glipizide 15 mg (3 x 5 mg) PO QDAY liraglutide (Victoza 3-Domingo) 1.8 mg (0.3 mL) subcut DAILY lisinopril 10 mg PO DAILY pantoprazole 40 mg PO DAILY pen needle, diabetic use with victoza pen. BD 32 gauge x /32 pioglitazone (Actos) 15 mg PO DAILY simvastatin 40 mg PO DAILY Vision Wearing glasses?: Yes Fall Risk History of falls: No Ambulatory Aid:: None Gait/Transferring:: Normal Medications:: Antihypertensives HIV Testing Offer - ages 13-64 HIV testing Offer: No Requirement for HIV testing offer been met?: Not in age range Do you need a note to return Do you need a note to return to daycare/school/sports/work: No Coronavirus Screening Screening Are you c urrently positive or on isolation for COVID ?: No Do you have any NEW signs of one or more of the following?: no symptoms Do you have NEW signs of at least two of the following?: no symptoms [facility] Medical History (Updated 06/09/20 @ 20:29 by Dc Orozco M.D.) Achilles tendinitis Bladder cancer Chronic kidney disease, stage 3b Enlarged prostate Essential hypertension (04/03/16) Hypovitaminosis D (04/03/16) Kidney disease Kidney stones Measles Mixed hyperlipidemia (04/03/16) Mumps Type 2 diabetes mellitus without complication, without long-term current use of insulin Surgical History Bladder cancer H/O rotator cuff surgery History of - surgery History of - surgery History of nephrectomy, right Trigger finger of right hand Family History Mother Depression Father Diabetes Hypertension Sister No problems noted. Brother No problems noted. Social History Does the Patient have a Healthcare Proxy: No Does Patient have a DNR?: No Does Patient have a Living Will?: No marital status: highest education level completed: some college, no degree service: Yes current occupational status: retired current occupational exposures/hazards: Yes pets and animals: Yes leisure activities: sports Hx Recent Travel (where): No caffeine: Yes Type: carbonated beverages and coffee high-fat food intake: 0-1 times daily daily servings fruits/ve- 4 daily servings of milk/calcium: 0-1 eating out: 1-3 times/week reads food labels: seldom or never during the past year weight has: decreased > 10 lbs Smoking Status: Former smoker how long ago did patient quit smoking: minimal smoking alcohol intake: former details: drank while in [place] HPI Additional HPI HPI Details: Patient with multiple problems including diabetes, hypertension, hyperlipidemia, vitamin D deficiency and kidney stones came to the office for his follow-up visit. He had no complaints. Diabetic Foot Evaluation History of Present Illness Current symptoms: Reports callus; Denies numbness, tingling, paresthesias, stinging, burning, ulceration, arthralgias or other Infection present: No Intermittent claudication: No Wears diabetic shoes: No Previous foot/ankle surgery: No Toenails trimmed by: self Difficulty trimming toenails: No Painful toenails from walking/shoes: No Compliant with patient education: Yes Review of Systems Const Denies anorexia, Denies fatigue, Denies fever(s), Denies headache(s) and Denies weight loss ENT Denies dysphagia, Denies dizziness, Denies headache(s) and Denies disequilibrium Card Denies chest pain, Denies pedal edema, Denies lightheadedness, Denies palpitations and Denies dyspnea Resp Denies cough, Denies excessive phlegm production, Denies pain on inspiration, Denies dyspnea and Denies wheezing GI Denies abdominal pain, Denies change in bowel habits, Denies dysphagia, Denies early satiety, Deniesheartburn, Denies diarrhea, Denies nausea and Denies vomiting Musc Denies arthralgias, Denies numbness and Denies tingling Neuro Denies dizziness, Denies headache(s), Denies memory loss, Denies numbness, Denies tingling, Denies paresthesias and Denies disequilibrium Psych Denies memory loss Endo Denies fatigue and Denies palpitations Aller/Immun Denies wheezing Exam Const General: cooperative, healthy appearing, no acute distress, well developed and well groomed Nutritional Appearance: overweight Orientation: alert and awake Eyes Pupils: PERRL Neck Neck: normal visual inspection, no lymphadenopathy, supple and no JVD present Carotids: normal carotid upstroke Resp Effort Inspection: normal respiratory effort Auscultation: clear to auscultation bilaterally Percussion: percussion normal Cardio Jugular venous pressure: no JVD Rate: regular rate Rhythm: regular rhythm Heart Sounds: S1 normal and S2 normal GI Inspection: Yes normal to inspection Palpation: soft and nontender Auscultation: normal bowel sounds Neuro General: gait normal Extrem General: normal to inspection, full ROM and no clubbing, cyanosis or edema Diabetic Foot Inspection: No foot deformity, Yes nail disorder (Left big toe), Yes nando luses/corns, No skin breaks,No infection, No ulceration and No other Pulses: Left dorsalis pedis peripheral pulse: normal, Right dorsalis pedis peripheral pulse: normal,L posterior tibial pulse: normal and Right posterior tibial pulse foot exam: normal Monofilament exam: L 1st metatarsals: normal, Left 3rd metatarsals monofilament exam: normal, L 5th metatarsals: normal, L great toe: normal, L 3rd toe: normal, L 5th toe: normal, Left medial mid foot: normal, Left lateral mid-foot: normal, Left mid-heel: normal, Left mid-dorsum foot: normal, R 1st metatarsals: normal, R 3rd metatarsals: normal, R 5th metatarsals: normal, R great toe: normal, R 3rd toe: normal, R 5th toe: normal, Right medial mid foot: normal, Right lateral mid-foot: normal,Right mid-heel: normal and Right mid-dorsum foot: normal Monofilament foot exam results: Left foot: normal and Right foot: normal Tuning fork: L great toe: normal and R great toe: normal Pinprick: L great toe: normal Ankle reflex: Left: normal and Right: normal Foot Ulcer Grade Classification:: Grade 0 : Intact Skin Quality Reporting Adult ([facility] 138/2/22/69/61/64/165) Controlling High BP: No Dialysis care, No Dialysis care assessment, No Dialysis access maint and No Dialysis education Diabetes ([facility] 123/131/134) Visual inspection of feet performed: Yes Vibratory sensation test: Yes Peripheral pulses present: Yes Left posterior tibial: normal Right posterior tibial: normal Left dorsalis pedis: normal Right dorsalis pedis: normal Diabetes Urine Protein: No Dialysis care, No Dialysis care assessment, No Dialysis access maint and No Dialysis education Diabetes eye exam performed: Yes Assessment Plan Assessment Plan (1) Type 2 diabetes mellitus without complication, without long-term current use of insulin: Status: Chronic Code(s): E11.9 - Type 2 diabetes mellitus without complications SNOMED Code(s): 346659668 Category: Mike Orozco M.D.: A1c has improved to 7.4. Patient ex pects continued improvement. Medications: Refilled: pen needle, diabetic use with victoza pen. BD 32 gauge x 5/32 90 device 3RF (2) Essential hypertension: Status: Chronic Onset Date: 04/03/16 Code(s): I10 - Essential (primary) hypertension SNOMED Code(s): 05880683 Category: Mike Orozco M.D.: Blood pressure is well controlled on the current regimen. Patient was advised to follow a low-salt diet. Additional time was spent with the patient discussing the hypertension plan of care. (3) Mixed hyperlipidemia: Status: Chronic Onset Date: 04/03/16 Code(s): E78.2 - Mixed hyperlipidemia SNOMED Code(s): 070045556 Category: Mike Orozco M.D.: Patient was reminded of the importance of following a low-fat diet. This should also help him lose additional weight. (4) Chronic kidney disease, stage 3b: Status: Acute Code(s): N18.32 - Chronic kidney disease, stage 3b SNOMED Code(s): 636868916 Category: Mike Orozco M.D.: Creatinine is 2 and GFR is 33. Patient has a solitary kidney. Additional Comments Additional Comments: Patient came for a 3-month checkup. He was signed up for the patient portal. He will return at the end of 3 months. Certain parts of this note may have been carried over from prior notes to maintain accuracy of the patient's pertinent medical history and continuity of care. The details were verified and edited asappropriate. This document was dictated using [employer] speech recognition software. A reasonable attempt to proofread has been made to minimize errors. Please call if you notice any errors or have any questions. Orders Follow Up: 3 Months (Diabetes) Time spent Total time spent on medical discussion: 30 Coding Level of Care Code 43562 Est Pt Extended Comp Exam Expanded Problem Focused Diagnoses Type 2 diabetes mellitus without complication, without long-term current use of insulin E11.9 Essential hypertension I10 Mixed hyperlipidemia E78.2 Chronic kidney disease, stage 3b N18.32 Time Spent (min) 30 Comment Multiple problems, hyperlipidemia not at goal, overweight, worsening renal function <Electronically signed by Dc Orozco MD> 06/09/202029 Name Value Range Interpretation Code Description Data Mallika rce(s) Supporting Document(s) ID Date Data Source [id number] 06/07/2020 10:35:00 AM [facility] Name Value Range Interpretation Code Description Data Mallika rce(s) Supporting Document(s) Hemoglobin A1c [Mass/volume] in Blood 7.4 % 3.8-5.6 Above hig h normal [facility] The following ranges may be u sed for interpretation of results: HGBA1C degree of glucose control: Greater than 8%: Action Suggested * Less than 7%: Goal of Diabetic Therapy Less than 5.6%: NormalFactors such as duration of diabetes, adherence to therapyand the age of the patient should also be considered inassessing the degree of blood glucose control.* High risk of developing intermediate frame tender complications such asretinopathy, nephropathy, neuropathy, cardiopathy, etc. Some danger of hypoglycemic reaction in Type I diabetics.Some glucose intolerant individuals and "Sub Clinical"diabetics may demonstrate HGBA1C levels in this area. Glucose mean value [Moles/volume] in Blood Estimated f rom glycated hemoglobin 166 mg/dL [facility] l An A1C of 7% - the goal of diabetic ther apy - is equivalentto an EAG of 154 mg/dl. ID Date Data Source [id number] 06/07/2020 10:51:00 AM [facility] Name Value Range Interpretation Code Description Data Mallika rce(s) Supporting Document(s) Urea nitrogen [Mass/volume] in Serum or Plasma 46 mg/dL 9-23 Above high normal [facility] Sodium [Moles/volume] in Serum or Plasma 139 mmol/L 132-146 N [facility] Potassium [Moles/volume] in Serum or Plasma 4.4 mmol/L 3.5-5.5 N [facility] Chloride [Moles/volume] in Serum or Plasma 107 mmol/L 99-109 N [facility] Carbon dioxide, total [Moles/volume] in Serum or Plasma 25 mmol/L 20 -31 N [facility] [facility] An[facility] gap in Serum or Plasma 11 mmol/L 8-16 N L [facility] Glucose [Mass/volume] in Serum or Plasma 158 mg/dL 74-106 Above high normal [facility] Creatinine 2.0 mg/dL 0.5-1.1 Above high normal [facility] Glomerular filtration rate/1.73 sq M.pre dicted [Volume Rate/Area] in Serum or Plasma 33 ml/min ABOVE 60 [facility] ital Calcium [Mass/volume] in Serum or Plasma 8.5 mg/dL 8.5-10.1 N [facility] ID Date Data Source [id number] 03/09/2020 12:45:00 PM EST [facility] Patient Name: ROGELIO SHANKS DO B: 1945 Sex: M Pt Unit #: [id number] Location:[facility] Provider: Visit Date/Time: 03/09/20 Primary Insurance: MEDICARE [facility] Secondary Insurance: [employer] Intake Vital Signs 03/09/20 12:59 Current Height 5 ft 9 in Current Weight 200 lb Weight Measurement Method Standing Scale BMI 29.5 BP 118/64 Blood Pressure Location Lt brachial Position Sitting Pulse 82 Pulse Strength Normal Pulse Source Pulse Oximeter Pulse Oximetry (%) 96 Oxygen Delivery Method room air Intake-Medicare Annual Visit Reasons: Annual Physical Nurse Note: Pt's here for his Medicare Annual Exam and regular exam. No active complaints at this time. Shift Leader Required: No Accompanied by: Self / Same as Patient Is patient in pain?: No Allergies No Known Drug Allergies Allergy (Verified 12/04/19 06:19) Feel stre ssed/tense/nervous/anxious/difficulty sleeping: not at all Medications - Last Reconciled 03/09/20 by Dc Orozco M.D. acetaminophen 500 mg PO Q6HR PRN empagliflozin 25 mg PO QAM glipizide 15 mg (3 x 5 mg) PO QDAY liraglutide (Victoza 3-Domingo) 1.8 mg (0.3 mL) subcut DAILY lisinopril 10 mg PO DAILY pantoprazole 40 mg PO DAILY pen needle, diabetic use with victoza pen. BD 32 gauge x 5/32 simvastatin 40 mg PO DAILY Fall Risk History of falls: No Ambulatory Aid:: None Gait/Transferring:: Normal Medications:: Antihypertensives HIV testing Offer: No Requirement for HIV testing offer been met?: Not in age range Coronavirus Screening Screening Have you traveled outside of [facility] or [facility] in the last 14 days.: Yes Has patient experienced coronavirus symptoms: No PFS Medical History Achilles tendinitis Bladder cancer Enlarged prostate Essential hypertension (04/03/16) Hypovitaminosis D (04/03/16) Kidney disease Kidney stones Measles Mixed hyperlipidemia (04/03/16) Mumps Type 2 diabetes mellitus without complication, without long- term current use of insulin Afluria Qd 2019-(3yr up)(PF) Performing Provider: Dc Orozco M.D. Administered by: Domi Santillan on 03/09/20 13:34 Surgical History Bladder cancer H/O rotator cuff surgery History of - surgery History of - surgery History of nephrectomy, right Trigger finger of right hand Family History Mother Depression Father Diabetes Hypertension Sister No problems noted. Brother No problems noted. Social History Does the Patient have a Healthcare Proxy: No Does Patient have a DNR?: No Does Patient have a Living Will?: No marital status: highest education level completed: some college, no degree service: Yes current occupational status: retired current occupational exposures/hazards: Yes pets and animals: Yes leisure activities: sports Hx Recent Travel (where): No caffeine: Yes Type: carbonated beverages and coffee high-fat food intake: 0-1 times daily daily servings fruits/ve- 4 daily servings of milk/calcium: 0-1 eating out: 1-3 times/week reads food labels: seldom or never during the past year weight has: decreased > 10 lbs Smoking Status: Former smoker how long ago did patient quit smoking: minimal smoking alcohol intake: former details: drank while in [place] Medicare Annual Wellness Type Of Examation Type of Exam: Initial Wellness Exam EKG EKG Performed: Yes (11/06/19) Medication list Medications acetaminophen 500 mg PO Q6HR PRN empagliflozin 25 mg PO QAM glipizide 15 mg (3 x 5 mg) PO QDAY liraglutide (Victoza 3-Domingo) 1.8 mg (0.3 mL) subcut DAILY lisinopril 10 mg PO DAILY pantoprazole 40 mg PO DAILY pen needle, diabetic use with victoza pen. BD 32 gauge x 5/32 simvastatin 40 mg PO DAILY Allergies Allergies No Known Drug Allergies Allergy (Verified 12/04/19 06:19) Current Diet Current diet: regular Vision [place] [facility] Far - right eye: 20/30 VA Far - left eye: 20/25 VA Far - bilateral eyes: 20/30 VA Near - right eye: 20/70 VA Near - left eye: 20/70 VA near - bilateral eye: 20/30 Functional Assessment Bathing: Independent Dressing: Independent Toileting: Independent Transferring: Independent Continence: Independent Feeding: Independent Total Score: 6 Home Safety Home Safety: Reports Lighting: Adequate, [place]: No throw rugs and Stairs: Handrail available; DeniesBathroom: Grab bars Hearing Hearing Left Ear: Abnormal (has a hearing aid) Hearing Right Ear: Abnormal (has a hearing aid) IADL Assessment Functional abilities: Up Go test, pt steady, Up Go test, within 30 sec, Pt independent w/phone,Pt independent w/transportation, Pt independent w/shopping, Pt independent w/housework, Pt independent w/meal preparation, Pt independent w/laundry, Pt independent w/medication and Pt independent w/finances Cognitive Evaluation Oriented to the date:: Yes Oriented to time:: Yes Oriented to place:: Yes Mood: grossly normal Affect: Normal Judgement: normal Needs caregiver for assistance: No Clock drawing: Yes Clock drawing with correct time: Yes 3 item recall: 3 Next Visit Return to Office:: At the end of 3 months HPI Additional HPI HPI Details: Patient with multiple problems including diabetes, hypertension, hyperlipidemia, vitamin D deficiency and kidney stones came to the office for his Medicare and annual wellness visit and a follow-up exam. I offered my condolences as the patient recently lost his . Patient had no major physical complaints. Review of Systems Const Denies anorexia, Denies fatigue, Denies fever(s), Denies headache(s) and Reports weight loss (3 pound beneficial weight loss in the past 3 months) ENT Denies dysphagia and Denies headache(s) Card Denies chest pain, Denies pedal edema, Denies lightheadedness, Denies palpitations and Denies dyspnea Resp Denies dyspnea and Denies wheezing GI Denies abdominal pain, Denies change in bowel habits, Denies dysphagia, Denies early satiety, Deniesheartburn, Denies diarrhea, Denies nausea and Denies vomiting Neuro Denies headache(s) and Denies memory loss Psych Denies memory loss Endo Denies fatigue and Denies palpitations Aller/Immun Denies wheezing Exam Const General: cooperative, healthy appearing, no acute distress, well developed and well groomed Nutritional Appearance: overweight Orientation: alert and awake Eyes Pupils: PERRL Neck Neck: normal visual inspection, no lymphadenopathy, supple and no JVD present Carotids: normal carotid upstroke Resp Effort Inspection: normal respiratory effort Auscultation: clear to auscultation bilaterally Percussion: percussion normal Cardio Jugular venous pressure: no JVD Palpation: normal PMI Rate: regular rate Rhythm: regular rhythm Heart Sounds: S1 normal and S2 normal GI Inspection: Yes normal to inspection Palpation: soft and nontender Auscultation: normal bowel sounds Neuro General: gait normal Extrem General: normal to inspection, full ROM and no clubbing, cyanosis or edema Immunizations Afluria Qd 2019-(3yr up)(PF) Performing Provider: Dc Orozco M.D. Administered by: oDmi Santillan on 03/09/20 13:34 Dose Route Admin Location Lot Number Expiration Date VAC Manufactu rer 0.5 mL IM Left deltoid [id number] 10/05/20 [id number] [employer] VIS Given Date VIS Provided VIS Publication Date 03/09/20 Single Vaccine 18 Eligibility Eligibility Date Funding Source Not VFC Eligible 03/09/20 Private Assessment Plan Assessment Plan (1) Medicare annual wellness visit, subsequent: Code(s): Z00.00 - Encounter for general adult medical examination without abnormal findings Plan - Dc Orozco M.D.: Patient came for the annual wellness visit. Patient's medical and personal history was updated. I updated the list of patient's current medical providers. Medication regimen was also reviewed. Vitalsigns were recorded. Patient was subjected to the mini-cog test. There is no evidence of cognitive impairment. Health maintenance activity record was updated. Patient was provided with personalized advice regarding lifestyle measures. A printed personalized prevention plan was provided to the patient. Return appointment will be at the end of 3 months for a recheck. (2) Type 2 diabetes mellitus without complication, without long-term current use of insulin: Status: Chronic Code(s): E11.9 - Type 2 diabetes mellitus without complications Category: Mike Plan - Dc Orozco M.D.: A1c has improved to 7.9. Patient expects continued improvement now that he is able to focus on his own health. Orders: Orders: BMP 3 Months HGBA1C + EAG 3 Months (3) Essential hypertension: Status: Chronic Onset Date: 04/03/16 Code(s): I10 - Essential (primary) hypertension Category: Mike Goins - Dc Orozco M.D.: Blood pressure is well controlled on the current regimen. Patient was advised to follow a low-salt diet. Additional time was spent with the patient discussing the hypertension plan of care. (4) Mixed hyperlipidemia: Status: Chronic Onset Date: 04/03/16 Code(s): E78.2 - Mixed hyperlipidemia Category: Mike Plan - Dc Orozco M.D.: Patient was reminded of the importance of following a low-fat diet. This should also help him lose additional weight. Additional Comments Additional Comments: Patient came for a 3-month checkup as well as his Medicare annual wellness visit. He will return at the end of 3 months for a recheck. Patient received his influenza vaccineat today's visit. Certain parts of this note may have been carried over from prior notes to maintain accuracy of the patient's pertinent medical history and continuity of care. The details were verified and edited asappropriate. This document was dictated using [employer] speech recognition software. A reasonable attempt to proofread has been made to minimize errors. Please call if you notice any errors or have any questions. Orders Other Orders: Orders: INJ - Influenza Vaccine Today Z23 Follow Up: 3 Months (Diabetes) <Electronically signed by Dc Orozco MD> 03/09/20 5638 Name Value Range Interpretation Code Description Data Mallika rce(s) Supporting Document(s) ID Date Data Source [id number] 03/09/2020 10:30:00 AM [facility] Method of Collection:: Voided Name Value Range Interpretation Code Description Data Mallika rce(s) Supporting Document(s) Leukocytes [#/volume] in Blood by Automated count 8.5 10*3/uL 4.45-10 .71 N [facility] Erythrocytes [#/volume] in Blood by Automated count 5.45 10*6/uL 4.3- 6.1 N [facility] Hemoglobin [Moles/volume] in Blood 15.2 g/dL 13-18 N [facility] Hematocrit [Volume Fraction] of Blood by Automated count 48.6 % 4 2-52 N [facility] Erythrocyte mean corpuscular volume [Ent itic volume] in Cord blood by Automated count 89.2 fL 80-96 N [facility] Erythrocyte mean corpuscular hemoglobin [Entitic mass] by Automated count 27.9 pg 27-31 N [facility] Erythrocyte mean corpuscular hemoglobin concentration [Mass/volume] in Cord blood 31.3 g/dL 33-37 Below low normal [facility] Erythrocyte distribution width [Entitic volume] by Automated count 14 % 11-15 N [facility] Platelets [#/volume] in Blood by Automated count 222 10*3/uL 130-472 N [facility] Platelet mean volume [Entitic volume] in Blood 10.6 fL 9.1-13.1 N [facility] Neutrophils/100 leukocytes in Blood by Automated count 77.1 % 41-77 Above high normal [facility] Neutrophils [#/volume] in Blood by Automated count 6.5 U 1.7-7.6 N [facility] Lymphocytes/100 leukocytes in Blood by Automated count 16.7 % 14- 46 N [facility] Lymphocytes [#/volume] in Blood by Automated count 1.4 U 0.6-4.6 N [facility] Monocytes/100 leukocytes in Blood by Automated count 5.0 % 4-12 N [facility] Monocytes [#/volume] in Blood by Automated count 0.4 U 0.2-1.2 [facility] Eosinophils/100 leukocytes in Blood by Automated count 0.8 % 0-7 N [facility] Eosinophils [#/volume] in Blood by Automated count 0.1 U 0.0-0.5 [facility] Basophils/100 leukocytes in Blood by Automated count 0.2 % 0.4-1.3 Below low normal [facility] Basophils [#/volume] in Blood by Automated count 0.0 U 0.0-0.2 N [facility] NUCLEATED RED BLOOD CELL 0 % [facility] NUCLEATED RED BLOOD CELL# 0 U [facility] Immature granulocytes [Presence] in Blood by Automated count 0-2 N [facility] Immature granulocytes [#/volume] in Blood by Automated count 0.0 U 0-0.1 N [facility] Manual Differential panel - Blood NO [facility] ID Date Data Source [id number] 03/09/2020 10:41:00 AM EST [facility] Method of Collection:: Voided Name Value Range Interpretation Code Description Data Mallika rce(s) Supporting Document(s) Color of Urine [facility] Appearance of Urine CLEAR [facility] pH of Urine by Test strip 6.0 5-8 [facility] Specific gravity of Urine by Refractometry 1.025 1.005-1.030 [facility] Leukocyte esterase [Presence] in Urine by Test strip NEGAT RADHAMES [facility] Nitrite [Presence] in Urine by Test strip NEGATIVE [facility] Protein [Presence] in Urine by Test strip NEGATIVE [facility] Glucose [Mass/volume] in Urine by Automated test strip > 1000 mg /dl NEGATIVE Abnormal (applies to non-numeric results) [facility] Ketones [Presence] in Urine by Test strip NEGATIVE [facility] Urobilinogen [Presence] in Urine 0.2-1 EU/dl [facility] Bilirubin.total [Presence] in Urine by Automated test strip NEGATIVE [facility] Erythrocytes [#/volume] in Urine by Test strip NEGATIVE NEGATIVE [facility] URINE MICROSCOPIC ADDED NO [facility] ID Date Data Source [id number] 03/09/2020 11:06:00 AM EST [facility] Method of Collection:: Voided Name Value Range Interpretation Code Description Data Mallika rce(s) Supporting Document(s) Hemoglobin A1c % 7.9 % 4.0-6.0 Above high normal [facility] The following ranges may be u sed for interpretation of results: HGBA1C degree of glucose control: Greater than 8%: Action Suggested * Less than 7%: Goal of Diabetic Therapy Less than 6%: NormalFactors such as duration of diabetes, adherence to therapyand the age of the patient should also be considered inassessing the degree of blood glucose control.* High risk of developing intermediate frame tender complications such asretinopathy, nephropathy, neuropathy, cardiopathy, etc. Some danger of hypoglycemic reaction in Type I diabetics.Some glucose intolerant individuals and "Sub Clinical"diabetics may demonstrate HGBA1C levels in this area. Glucose mean value [Moles/volume] in Blood Estimated f rom glycated [facility] An A1C of 7% - the goal of diabetic ther apy - is equivalentto an EAG of 154 mg/dl. ID Date Data Source [id number] 03/09/2020 11:06:00 AM EST [facility] Method of Collection:: Voided Name Value Range Interpretation Code Description Data Mallika rce(s) Supporting Document(s) Urea nitrogen [Mass/volume] in Serum or Plasma 27 mg/dL 9-23 Above high normal [facility] Sodium [Moles/volume] in Serum or Plasma 142 mmol/L 132-146 N [facility] Potassium [Moles/volume] in Serum or Plasma 4.8 mmol/L 3.5-5.5 [facility] Chloride [Moles/volume] in Serum or Plasma 109 mmol/L 99-109 [facility] Carbon dioxide, total [Moles/volume] in Serum or Plasma 28 mmol/L 20 -31 N [facility] Anion gap in Serum or Plasma 10 mmol/L 8-16 N [facility] Glucose [Mass/volume] in Serum or Plasma 123 mg/dL 74-106 Above high normal [facility] Creatinine 1.8 mg/dL 0.5-1.1 Above high normal [facility] Glomerular filtration rate/1.73 sq M.pre dicted [Volume Rate/Area] in Serum or Plasma 37 ml/min ABOVE 60 [facility] ital Alanine aminotransferase [Enzymatic acti vity/volume] in Serum or Plasma by With P-5'-P 21 U/L 10-49 N [facility] ital Aspartate aminotransferase [Enzymatic ac tivity/volume] in Serum or Plasma by With P-5'-P 16 U/L 0-33 N [facility] pital Alkaline phosphatase [Enzymatic activity/volume] in Serum or Plasma 108 U/L 45-129 N [facility] Calcium [Mass/volume] in Serum or Plasma 8.8 mg/dL 8.5-10.1 [facility] Bilirubin.total [Mass/volume] in Serum or Plasma 0.8 mg/dL 0.3-1.2 [facility] Albumin [Mass/volume] in Serum or Plasma by Bromocresol purple (BCP) dye binding method 3.9 g/dL 3.2-4.8 N [facility] ital Protein [Mass/volume] in Serum or Plasma 7.7 g/dL 5.7-8.2 [facility] ID Date Data Source [id number] 03/09/2020 11:21:00 AM [facility] Method of Collection:: Voided Name Value Range Interpretation Code Description Data Mallika rce(s) Supporting Document(s) Urine Random Creatinine 84.0 mg/dL [facility] THERE IS NO ESTABLISHED RANGE FOR RANDOM URINE CREATININE Urine Microalbumin 22.3 mg/L 0.0-29.9 [facility] Ur Malb/Cre Ratio (ACR) 26.5 ug/mg 0.0-30.0 [facility] ID Date Data Source [id number] 03/09/2020 11:06:00 AM [facility] Method of Collection:: Voided Name Value Range Interpretation Code Description Data Mallika rce(s) Supporting Document(s) Triglycerides 213 mg/dL 0-150 Above high normal [facility] Cholesterol 191 mg/dL 120-200 [facility] HDL Cholesterol 45 mg/dL [facility] HDL Less than 40 mg/dL: Major risk for CHDHDL Greater than 59 mg/dL: Low risk for CHD LDL Cholesterol, Calc 104 mg/dL 0-100 Above high normal [facility] Procedure Social History No Information Vital Signs ID Date Data Source UNK Name Value Range Interpretation Code Description Data Source(s) Body weight 210 [lb_av] 210 [lb_av] eCW1 ([facility]) Body height 69 [in_i] 69 [in_i] eCW1 ([facility]) Body mass index (BMI) [Ratio] 31.01 kg/m2 31.01 kg/m2 eCW1 ([facility]) Heart rate 81 /min 81 /min eCW1 ([facility]) Respiratory rate 18 /min 18 /min eCW1 ([facility]) Body temperature 97.5 [degF] 97.5 [degF] eCW1 ( [facility]) Systolic blood pressure 160 mm[Hg] 160 mm[Hg] e CW1 ([facility]) Diastolic blood pressure 48 mm[Hg] 48 mm[Hg] eCW1 ([facility])
--- OUTSIDE RECORDS SUMMARY | 2021-03-10 03:36 | CCD | Continuity of Care Document ---
Author Author Scarlet NEVES DPM Organization Unknown Address [address] [place] [address], [address] [place] [address] Phone [phone] Care Team Providers Care Wheel Polisher Name Role Phone Major Huizar DO OUMARM [phone] Problems Active Problems Provider Date Onychomycosis Liborio Neves DPM Onset: 07/21/2018 Type 2 diabetes mellitus Liborio Neves DPM Onset: 019 Peroneal tenosynovitis Liborio Neves DPM Onset: Osteochondropathy Liborio Neves DPM Onset: 11/07/2020 Social History Type Date Description Comments Sex Unknown ETOH Use Denies alcohol use Tobacco Use Start: Unknown Patient has never smoked Allergies and adverse reactions Description No Known Drug Allergies Medications Active Medications SIG Qnty Indications Ordering Provide r Date Diclofenac Sodium 1% Gel apply 1 gram to foot 2-3 times per day 100gm Liborio Neves DPM 10/07 Jublia 10% Solution apply to toe nails as directed. 8ml Liborio Neves DPM 06/15/2019 Ciclopirox 8% Solution apply to affected nail(s) as daily, remove once weekly 6.6units Liborio saul DPM 07/10/2018 Hydrocodone-Acetaminophen 5-325mg Tablets Take One Tablet By Mouth Every 4 To 6 Hours as Needed For Surgical Pain Maximum Daily Dose 6 Unknown Mapap 500mg Capsules Take One Capsule By Mouth Every 6 Hours as Needed For Pain Unknown Cyclobenzaprine HCL 10mg Tablets Take One Tablet By Mouth Every 12 Hours Unknown 0 Methylprednisolone 4mg TBPK Mcelheran, PA M Mometasone Furoate 50mcg/Act Suspe nsion [place] 2 Sprays In Each Nostril Once Daily Unknow n Amoxicillin 500mg Tablets Unknown Metformin HCL 500mg Tablets Eric Cline DO Pioglitazone HCL 15mg Tablets BhupendraMajor DO Pantoprazole Sodium 40mg Tablets D R Take One Tablet By Mouth Every Day Unknown Lisinopril 10mg Tablets Major Huizar DO Simvastatin 40mg Tablets Bhupendra Major DO Victoza 18mg/3ML Solution Pen-Inject BhupendraMajor DO Glipizide 5mg Tablets Bhupendra Major DO Sulfamethoxazole/Trimethoprim DS 800-160mg Tablets Unknown Unifine Pentips 32G X 4 mm Misc BhupendraMajor DO Immunizations Description No Information Available Vital Signs Date Vital Result Comment 07/10/2018 8:27am Height 69 inches 5'9" Weight 200.00 lb BP Systolic 128 mmHg BP Diastolic 84 mmHg Heart Rate 68 /min BMI (Body Mass Index) 29.5 kg/m2 Results Description No Information Available Procedures Date Code Description Status 10/27/2020 80545 Office/Outpatient Established w MDM 20-29 Min Completed 10/27/2020 45804 X-Ray Foot Complete Completed 10/27/2020 96309 Strapping Foot Or Ankle Complete d Medical Devices Description No Information Available Encounters Type Date Location Provider Dx Diagnosis Office Visit 10/27/2020 1:45p [place] [facility] Liborio Neves DPM M65.871 Other synovitis and tenosynovitis, right ankle and foot 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
--- OUTSIDE RECORDS SUMMARY | 2021-03-10 03:36 | CCD | Continuity of Care Document ---
Author Author Scarlet NEVES DPM Organization Unknown Address [address] [place] [address], [address] [place] [address] Phone [phone] Care Team Providers Care Automotive Engineering Technician Name Role Phone Major Huizar DO OUMARM [phone] Problems Active Problems Provider Date Onychomycosis Liborio [...] PA M Mometasone Furoate 50mcg/Act Suspe nsion [place] 2 Sprays In Each Nostril Once Daily [...] Available Procedures Date Code Description Status 10/27/2020 59559 Office/Outpatient Established w MDM 20-29 Min Completed 10/27/2020 53732 X-Ray Foot Complete Completed 10/27/2020 02641 Strapping Foot Or Ankle Complete d Medical Devices Description No Information Available Encounters Type Date Location Provider Dx Diagnosis Office Visit 10/27/2020 1:45p [place] [facility] Liborio Neves DPM M65.871 Other synovitis [...] 2:00 pm - Liborio Neves DPM at [facility] Functional Status Description No Information Available Mental Status Description No Information Available Referrals Description No Information Available
[2021-03-10] MEDS ORDERED: VICT18IN SC (03:38)
[2021-03-10] MEDS ORDERED: SIMV40TA20 PO (03:38)
[2021-03-10] MEDS ORDERED: ACTO15TA19 PO (03:38)
[2021-03-10] MEDS ORDERED: PANT40TA29 PO (03:38)
[2021-03-10] MEDS ORDERED: VITA500045 PO (03:38)
[2021-03-10] MEDS ORDERED: LISI10TA22 PO (03:38)
--- OUTSIDE RECORDS SUMMARY | 2021-03-10 07:13 | CCD ---
Author Author [facility] Organization [facility] Address Unknown Phone Unavailable Care Team Providers Care Test Developer Name Role Phone Maring, Darien PA Unavailable [...] Unavailable Ghada NEVES DPM Unavailable Unavailable Ghada NVEES DPM Unavailable Unavailable Ghada NEVES DPM Unavailable [...] Unavailable Pam, Ghada Siddiqiorex MOLINA Unavailable Unavailable Pma, Ghada S[employer] MOLINA Unavailable Unavailable PamGhadaorex MOLINA [...] is protected by Article 27-F of the [facility] Public Health law. If you continue you may have access to information: Regarding HIV / AIDS; Provided by facilities licensed or operated by the [facility] Office of Mental Health; or Provided by the [facility] Office for People With Developmental Disabilities. If such information is present, then the following [facility] mandated warning applies: This information has been [...] law may result in a fine or assisted sentence or both. A general authorization for the release of medical or other information is NOT sufficient authorization for further disc losure. Allergies and Adverse Reactions Type Description Substance Reaction Status Data Source(s ) Drug allergy No Known Drug Allergies No Known Drug Allergies [facility] Food allergy No Known Food Allergies No Known Food Allergies [facility] Family History Family Member Name Family Member Gender Family Member Status Date o f Status Description Data Source(s) Unknown Condition [facility] Unknown Condition [facility] Unknown Condition [facility] Unknown Condition [facility] Unknown Condition [facility] Unknown Condition [facility] Unknown Condition [facility] Unknown Condition [facility] Unknown Condition [facility] Unknown Condition [facility] Unknown Condition [facility] Unknown Male Problem [facility] ([facility] Unknown Male Problem [facility] ([facility] ) Unknown Unknown Problem [facility] ([facility]) Encounters Encounter Providers Location Date Indications Data Source(s ) Outpatient Attender: Dc Orozco MDReferrer: Dc Orozco MD 01/24/2021 10:42:00 AM EDT - 01/24/2021 01:04:00 PM EDT [facility] Outpatient Attender: Dc Orozco MD 12/09/2020 07:34:00 AM EDT E11.9 [facility] E11.9 Outpatient Attender: Darien BANERJEE 11/25/19 09:15:11 AM EDT - 11/24/2020 09:37:43 AM EDT [facility] ([facility] ) Outpatient Attender: GERRY NEVES [facility] Office 10/07 01:45:00 PM EDT [facility] ([facility] Outpatient Attender: Dc QUINONEZeferrer: Dc Orozco MD 09/15/2020 01:16:00 PM EDT [facility] Outpatient Attender: Dc Orozco MD 09/13/2020 04:21:00 PM EDT E11.9 [facility] E11.9 (Cyst[facility]) Urology [address] [place] [id number] 09/12/2020 12:00:00 AM EDT eCW1 ([facility]) Outpatient Attender: GERRY NEVES [facility] Office 07/08 01:45:00 PM EDT [facility] ([facility] Outpatient Attender: Dc QUINONEZeferrer: Dc Orozco MD 06/09/2020 01:05:00 PM EST - 06/09/2020 02:05:00 PM EST [facility] Outpatient Attender: Dc Orozco MD 06/07/2020 09:08:00 AM EST E11.9 [facility] E11.9 Outpatient Att[facility] 02:30:00 PM EST [facility] ([facility] Outpatient Attender: Dc Orozco MDReferrer: Dc Orozco MD 03/09/2020 12:47:00 PM EST - 03/09/2020 01:39:00 PM EST [facility] Outpatient Attender: Dc Orozco MD 03/09/2020 10:02:00 AM EST E11.9,I10 [facility] E11.9,I10 Outpatient Attender: GERRY NEVES [facility] [place] [facility] 01/06 03:30:00 PM EDT [facility] ([facility] Immunizations Vaccine Date Status Description Data Source(s) COVID-19 VACCINE Moderna 01/23/2021 12:00:00 AM EDT completed [facility] Vaccine Series Complete: YESThis Data wa s Submitted to [facility]. COVID-19 Moderna 05/17/2020 12:00:00 AM EST completed [facility] COVID-19 Moderna 05/17/2020 12:00:00 AM EST completed COVID-19 [facility] COVID-19 VACCINE Moderna 05/17/2020 12:00:00 AM EST completed [facility] Vaccine Series Complete: YESThis Data wa s Submitted to [facility] [employer]. COVID-19 Moderna 04/19/2020 12:00:00 AM EST completed [facility] COVID-19 Moderna 04/19/2020 12:00:00 AM EST completed COVID-19 [facility] COVID-19 VACCINE Moderna 04/19/2020 12:00:00 AM EST completed [facility] Vaccine Series Complete: NOThis Data was Submitted to [facility] [employer]. IIV3. This is one of two codes replacing CVX 15, which is being retired. 03/09/2020 12:00:00 AM EST completed [facility] IIV3. This is one of two codes replacing CVX 15, which is being retired. 03/09/2020 12:00:00 AM EST completed influenza vaccine, inactivated [facility] IIV3. This is one of two codes replacing CVX 15, which is being retired. 03/09/2020 12:00:00 AM EST completed influenza vaccine, inactivated [facility] Medications Medication Brand Name Start Date Product [...] 09/19/2020 08:32:27 AM EDT 1.8 MG active [facility] empagliflozin 25 MG Oral Tablet Empagliflozin Empagliflozin 09/19/2020 08:32:25 AM EDT 25 MG active [facility] 25 mg 09/19/2020 12:00:00 AM EDT [...] 09/15/2020 01:38:40 PM EDT 500 MG completed [facility] 32 gauge x 5/32" 06/11/2020 12:00:00 AM [...] 06/09/2020 01:11:07 PM EST 1 EACH active [facility] Pen Needle, Diabetic 06/09/2020 01:11:07 PM EST 1 EACH active [facility] Cholecalciferol 73198 UNT Oral Capsule Cholecalciferol (Vitamin D3) Cholecalciferol (Vitamin D3) 06/09/2020 01:10:42 PM EST 625 MCG active [facility] Cholecalciferol 64387 UNT Oral Capsule Cholecalciferol (Vitamin D3) Cholecalciferol (Vitamin D3) 06/09/2020 01:10:42 PM EST 625 [facility] 10 mg 05/30/2020 12:00:00 AM EST tablet [...] tablet 05/10/2020 09:50:05 AM EST 15 MG [facility] pioglitazone 15 MG Oral Tablet Pioglitazone (Actos) 15 mg tablet Pioglitazone (Actos) 15 mg tablet 05/10/2020 09:50:05 AM EST 15 MG [facility] pioglitazone 15 MG Oral Tablet PIOGLITAZONE HCL [...] 04/05/2020 11:02:21 AM EST 40 MG active [facility] Simvastatin 40 MG Oral Tablet Simvastatin 04/05/2020 11:02:21 AM EST 40 MG active [facility] Lisinopril 10 MG Oral Tablet Lisinopril 04/05/2020 11:02:11 AM EST 10 MG active [facility] Lisinopril 10 MG Oral Tablet Lisinopril 04/05/2020 11:02:11 AM EST 10 MG active [facility] Glipizide 5 MG Oral Tablet Glipizide 04/05/2020 11:02:03 AM EST 15 MG active [facility] Glipizide 5 MG Oral Tablet Glipizide 04/05/2020 11:02:03 AM EST 15 MG active [facility] pantoprazole 40 MG Delayed Release Oral Tablet Pantoprazole Pantoprazole 04/05/2020 11:01:56 AM EST 40 MG active [facility] pantoprazole 40 MG Delayed Release Oral Tablet Pantoprazole Pantoprazole 04/05/2020 11:01:56 AM EST 40 MG active [facility] Qd 2019-(3yr up)(PF) (flu vac [id number] 36mos up(P F)) 03/09/2020 12:47:24 PM EST 0.5 ML completed [facility] Qd 2019-(3yr up)(PF) (flu vac [id number] 36mos up(P F)) 03/09/2020 12:47:24 PM EST 0.5 ML completed [facility] Qd 2019-(3yr up)(PF) (flu vac [id number] 36mos up(P F)) 03/09/2020 12:47:24 PM EST 0.5 ML completed [facility] Glipizide 5 MG Oral Tablet Glipizide 11/27/2019 11:04:57 AM EDT 15 MG completed [facility] Glipizide 5 MG Oral Tablet Glipizide 11/27/2019 11:04:57 AM EDT 15 MG completed [facility] 5 mg 11/27/2019 12:00:00 AM EDT tablet [...] 09/10/2019 01:36:58 PM EDT 1.8 MG completed [facility] 25 mg 08/28/2019 12:00:00 AM EDT tablet [...] 02:13:36 PM EDT 25 MG completed [facility] Pen Needle, Diabetic 07/10/2019 07:48:21 AM EDT 1 EACH completed [facility] Pen Needle, Diabetic 07/10/2019 07:48:21 AM EDT 1 EACH completed [facility] 32 gauge x 5/32" 07/10/2019 12:00:00 AM EDT needle 90 USE WITH VICTOZA PEN USE WITH VICTOZA PEN SOLD: 01/20/2020 [facility] 32 gauge x 5/32" 07/10/2019 12:00:00 AM EDT needle 90 USE WITH VICTOZA PEN USE WITH VICTOZA PEN SOLD: 04/05/2020 [facility] Simvastatin 40 MG Oral Tablet Simvastatin 05/05/2019 09:56:31 AM EST 40 MG completed [facility] Simvastatin 40 MG Oral Tablet Simvastatin 05/05/2019 09:56:31 AM EST 40 MG completed [facility] pantoprazole 40 MG Delayed Release Oral Tablet Pantoprazole Pantoprazole 05/05/2019 09:56:25 AM EST 40 MG completed [facility] pantoprazole 40 MG Delayed Release Oral Tablet Pantoprazole Pantoprazole 05/05/2019 09:56:25 AM EST 40 MG completed [facility] Lisinopril 10 MG Oral Tablet Lisinopril 05/05/2019 09:56:21 AM EST 10 MG completed [facility] Lisinopril 10 MG Oral Tablet Lisinopril 05/05/2019 09:56:21 AM EST 10 MG completed [facility] 15 mg 05/05/2019 12:00:00 AM EST tablet [...] type / Coverage type Policy ID Covered libertarian ID Covered libertarian's relationship to [place] Policy [place] Plan Information [employer] () Workers Compensation [id number] Self [id number] [facility]) Workers Compensation [id number] Self [id number] [facility]) Workers Compensation [id number] Self [id number] [facility]) Workers Compensation [id number] Self 47 [id number] [facility]) Workers Compensation [id number] Self 47 [id number] [facility]) Workers Compensation [id number] Self [id number] [facility]) Workers Compensation [id number] [id number] Self 47 [id number] [facility]) Workers Compensation [id number] Self 47 [id number] [facility]) Workers Compensation [id number] [id number] Self 47 [id number] [facility]) Workers Compensation [id number] Self 47 [id number] Medicare [place] Medicare Primary [id number]. [id number] Self MEDICARE [id number] [facility] Part B [id number] Self [id number] Medicare [place] Medicare Primary [id number] [id number] Self [id number] [facility] [id number] SP [id number] [facility] [id number] [id number] [facility] Medigap Part B [id number] Self [id number] Medicare [place] Medicare Primary [id number] Self [id number] [facility] Medigap Part B [id number] 2..[id number] Self [id number] Medicare [place] Medicare Primary [id number] 2..[id number] Self [id number] [facility] [id number]..[id number] Self [id number] Medicare [place] Medicare Primary [id number] [id number] [facility] Medigap Part B [id number] 2..[id number] Self [id number] Medicare [place] Medicare Primary [id number] [id number] Self [id number] [facility] [id number] 2..[id number] Self [id number] Medicare [place] Medicare Primary [id number] Self 45 [id number] Medicare [place] Medicare Primary [id number] Self 45 [id number] [facility] [id number] Self [id number] Medicare [place] Medicare Primary [id number] Self 45 [id number] [employer] [facility] [place] CC[place] [employer] VA Plan/ 6011 Self [id number] [facility] Part [facility] [id number] Self [id number] [facility] [id number] 89 [id number] MEDICARE C [id number] S [id number] A [facility]) O [id number] S [id number] ANS-Medicare Part B [id number] A [id number] ANSI-Medicare Part B [id number] ANSI-Commercial [id number] ANSI-Medicare Part B [id number] [facility] [id number] SP [id number] ANS-Medicare Part B [id number] MEDICARE [id number] SP [id number] A [facility] [id number] SP [id number] ANSI-Commercial [id number] [facility] UNAVAILABLE UNAVAILABLE MEDICARE [id number] SP [id number] Medicare Medicare Primary [id number] Self [id number] [facility] [id number] SP [id number] [facility] Part B [id number] Self Problems, Conditions, and Diagnoses Code Display Name [...] Intravesically (Glydo) 09/12/2020 12:00:00 AM EDT eCW1 ([facility]) TOBACCO USE ASSESSED 09/12/2020 12:00:00 AM EDT eCW1 ([facility]) OFFICE OUTPATIENT VISIT 10 MINUTES 07/28/2020 12:00:00 AM EDT [facility] ([facility] Results ID Date Data Source [id number] 01/24/2021 11:11:00 AM EDT [facility] Patient Name: ROGELIO SHANKS DO B: 1945 Sex: M Pt Unit #: [id number] Location:[facility] Provider: Visit Date/Time: 01/24/21 Primary Insurance: MEDICARE [employer] Secondary Insurance: [employer] [facility] [employer] Intake Vital Signs 01/24/21 11:18 Current [...] legs/toes will cramp at night x2 weeks. Dye House Worker Required: No Accompanied by: Self / Same [...] and colleagues, with an educational damaris from [employer]. HIV Testing Offer - ages 13-64 HIV [...] with his medications without any side effects. [facility] Medical History (Updated 01/24/21 @ 12:07 by [...] participate in?: walking Smoking Status: Former paula jeny how long ago did patient quit smoking: [...] Nutritional Appearance: overweight Orientation: alert and awake [facility] Head: normal to inspection Ears: hearing grossly [...] 2 diabetes mellitus without complications SNOMED Code(s): 343258321 Category: Medical Plan: A1c is stable at 7.6. Patient promises to do better with his diet and exercise regimen. (3) Essential hypertension: Status: Chronic Onset Date: 04/03/16 Code(s): I10 - Essential (primary) hypertension SNOMED Code(s): 19457754 Category: Medical Plan: Blood pressure is well controlled on the current regimen. Patient was advised to follow a low-salt diet. Additional time was spent with the patient discussing the hypertension plan of care. (4) Mixed hyperlipidemia: Status: Chronic Onset Date: 04/03/16 Code(s): E78.2 - Mixed hyperlipidemia SNOMED Code(s): 149134190 Category: Medical Plan: Results of the lipid panel were discussed with the patient. Triglycerides are slightly elevated. HDL is low increasing the risk of cardiovascular disease. (5) Chronic kidney disease, stage 3b: Status: Acute Code(s): N18.32 - Chronic kidney disease, stage 3b SNOMED Code(s): 451436451 Category: Medical Plan: Creatinine is 2.1 and GFR is 31. Patient has a solitary kidney. (6) Charcot's arthropathy: Status: Acute Code(s): M14.60 - Charcot's joint, unspecified site SNOMED Code(s): 931237047 Category: Medical Plan: Patient states that his [...] edited asappropriate. This document was dictated using [employer] speech recognition software. A reasonable attempt to proofread has been made to minimize errors. Please call if you notice any errors or have any questions. Orders Instructions: Type 2 Diabetes in Adults: New Diagnosis (GEN) DASH Eating Plan (GEN) Hypertension (GEN) Hyperlipidemia (GEN) Impaired Kidney Function (GEN) Follow Up: 3 Months (Diabetes) Coding Level of Care Code 65382 Est Pt Extended Comp Coding comments Coding Comments Additional info for the medical records coder: Annual evaluation for this patient with problems [...] rce(s) Supporting Document(s) ID Date Data Source [id number] 12/09/2020 08:27:00 AM EDT [facility] Method of Collection:: Voided Name Value Range Interpretation Code Description Data Mallika rce(s) Supporting Document(s) Color of Urine [facility] Appearance of Urine CLEAR Abnormal (applies to non-nu meric results) [facility] pH of Urine by Test strip 5.5 5-8 [facility] Specific gravity of Urine by Refractometry 1.029 1.005-1.030 [facility] Leukocyte esterase [Presence] in Urine by Test strip NEGAT RADHAMES [facility] Nitrite [Presence] in Urine by Test strip NEGATIVE [facility] Protein [Presence] in Urine by Test strip NEGATIVE [facility] Glucose [Mass/volume] in Urine by Automated test strip > 1000 mg /dl NEGATIVE Abnormal (applies to non-numeric results) [facility] Ketones [Presence] in Urine by Test strip NEGATIVE [facility] Urobilinogen [Presence] in Urine 0.2-1 EU/dl [facility] Bilirubin.total [Presence] in Urine by Automated test strip NEGATIVE [facility] Erythrocytes [#/volume] in Urine by Test strip NEGATIVE NEGATIVE [facility] URINE MICROSCOPIC ADDED NO [facility] ID Date Data Source [id number] 12/09/2020 12:07:00 PM EDT [facility] Method of Collection:: Voided Name Value Range Interpretation Code Description Data Mallika rce(s) Supporting Document(s) Urine Random Creatinine 118.0 mg/dL [facility] THERE IS NO ESTABLISHED RANGE FOR RANDOM URINE CREATININE Urine Microalbumin 10.9 mg/L 0.0-29.9 N [facility] Ur Malb/Cre Ratio (ACR) 9.2 ug/mg 0.0-30.0 N [facility] ID Date Data Source [id number] 12/09/2020 07:51:00 AM EDT [facility] Method of Collection:: Voided Name Value Range Interpretation Code Description Data Mallika rce(s) Supporting Document(s) Leukocytes [#/volume] in Blood by Automated count 5.9 10*3/uL 4.45-10 .71 N [facility] Erythrocytes [#/volume] in Blood by Automated count 5.12 10*6/uL 4.3- 6.1 N [facility] Hemoglobin [Moles/volume] in Blood 14.0 g/dL 13-18 N [facility] Hematocrit [Volume Fraction] of Blood by Automated count 43.7 % 4 2-52 N [facility] Erythrocyte mean corpuscular volume [Ent itic volume] in Cord blood by Automated count 85 fL 80-96 N [facility] Erythrocyte mean corpuscular hemoglobin [Entitic mass] by Au tomated count 27 pg 27-31 N [facility] Erythrocyte mean corpuscular hemoglobin concentration [Mass/volume] in Cord blood 32 g/dL 33-37 Below low normal [facility] Erythrocyte distribution width [Entitic volume] by Automated count 15 % 11-15 N [facility] Platelets [#/volume] in Blood by Automated count 198 10*3/uL 130-472 N [facility] Platelet mean volume [Entitic volume] in Blood 10.6 fL 9.1-13.1 N [facility] Neutrophils/100 leukocytes in Blood by Automated count 64.7 % 41- 77 N [facility] Neutrophils [#/volume] in Blood by Automated count 3.8 U 1.7-7.6 N [facility] Lymphocytes/100 leukocytes in Blood by Automated count 22.5 % 14- 46 [facility] Lymphocytes [#/volume] in Blood by Automated count 1.3 U 0.6-4.6 N [facility] Monocytes/100 leukocytes in Blood by Automated count 9.9 % 4-12 N [facility] Monocytes [#/volume] in Blood by Automated count 0.6 U 0.2-1.2 [facility] Eosinophils/100 leukocytes in Blood by Automated count 2.2 % 0-7 N [facility] Eosinophils [#/volume] in Blood by Automated count 0.1 U 0.0-0.5 N [facility] Basophils/100 leukocytes in Blood by Automated count 0.5 % 0.4-1 .3 N [facility] Basophils [#/volume] in Blood by Automated count 0.0 U 0.0-0.2 N [facility] NUCLEATED RED BLOOD CELL 0 % [facility] NUCLEATED RED BLOOD CELL# 0 U [facility] [place] Immature granulocytes [Presence] in Blood by Automated count 0-2 N [facility] Immature granulocytes [#/volume] in Blood by Automated count 0.0 U 0-0.1 N [facility] Manual Differential panel - Blood NO [facility] ID Date Data Source [id number] 12/09/2020 08:10:00 AM EDT [facility] Method of Collection:: Voided Name Value Range Interpretation Code Description Data Mallika rce(s) Supporting Document(s) Hemoglobin A1c [Mass/volume] in Blood 7.6 % 3.8-5.6 Above hig h normal [facility] The following ranges may be u sed for interpretation of results: HGBA1C degree of glucose control: Greater than 8%: Action Suggested * Less than 7%: Goal of Diabetic Therapy Less than 5.6%: NormalFactors such as duration of diabetes, adherence to therapyand the age of the patient should also be considered inassessing the degree of blood glucose control.* High risk of developing medical terminologist complications such asretinopathy, nephropathy, neuropathy, cardiopathy, etc. Some danger of hypoglycemic reaction in Type I diabetics.Some glucose intolerant individuals and "Sub Clinical"diabetics may demonstrate HGBA1C levels in this area. Glucose mean value [Moles/volume] in Blood Estimated f rom glycated hemoglobin 171 [facility] An A1C of 7% - the goal of diabetic ther apy - is equivalentto an EAG of 154 mg/dl. ID Date Data Source [id number] 12/09/2020 08:36:00 AM EDT [facility] Method of Collection:: Voided Name Value Range Interpretation Code Description Data Mallika rce(s) Supporting Document(s) Urea nitrogen [Mass/volume] in Serum or Plasma 33 mg/dL 9-23 Above high normal [facility] Sodium [Moles/volume] in Serum or Plasma 142 mmol/L 132-146 N [facility] Potassium [Moles/volume] in Serum or Plasma 4.0 mmol/L 3.5-5.5 N [facility] Chloride [Moles/volume] in Serum or Plasma 112 mmol/L 99-109 Above high normal [facility] Carbon dioxide, total [Moles/volume] in Serum or Plasma 24 mmol/L 20 -31 N [facility] Anion gap in Serum or Plasma 10 mmol/L 8-16 N L [facility] Glucose [Mass/volume] in Serum or Plasma 149 mg/dL 74-106 Above high normal [facility] Creatinine 2.1 mg/dL 0.5-1.1 Above high normal [facility] Glomerular filtration rate/1.73 sq M.pre dicted [Volume Rate/Area] in Serum or Plasma 31 ml/min ABOVE 60 [facility] ital Alanine aminotransferase [Enzymatic acti vity/volume] in Serum or Plasma by With P-5'-P 19 U/L 10-49 N [facility] ital Aspartate aminotransferase [Enzymatic ac tivity/volume] in Serum or Plasma by With P-5'-P 14 U/L 0-33 N [facility] pital Alkaline phosphatase [Enzymatic activity/volume] in Serum or Plasma 91 U/L 45-129 N [facility] Calcium [Mass/volume] in Serum or Plasma 8.1 mg/dL 8.5-10.1 Below low normal [facility] Bilirubin.total [Mass/volume] in Serum or Plasma 0.5 mg/dL 0.3-1.2 [facility] Albumin [Mass/volume] in Serum or Plasma by Bromocresol purple (BCP) dye binding method 3.4 g/dL 3.2-4.8 [facility] ital Protein [Mass/volume] in Serum or Plasma 6.8 g/dL 5.7-8.2 [facility] ID Date Data Source [id number] 12/09/2020 08:36:00 AM EDT [facility] Method of Collection:: Voided Name Value Range Interpretation Code Description Data Mallika rce(s) Supporting Document(s) Triglycerides 192 mg/dL 0-150 Above high normal [facility] Cholesterol 158 mg/dL 120-200 N [facility] HDL Cholesterol 39 mg/dL [facility] HDL Less than 40 mg/dL: Major risk for CHDHDL Greater than 59 mg/dL: Low risk for CHD LDL Cholesterol, Calc 81 mg/dL 0-100 N [facility] ID Date Data Source [id number] 11/24/2020 09:30:00 AM EDT [facility] Name Value Range Interpretation Code Description Data Mallika rce(s) Supporting Document(s) SARS-CoV-2 RNA Resp Ql SEKOU+probe NOT DETECTED [facility] This lab was ordered by DANILO florence and reported by DANILO Diamond. ID Date Data Source [id number] 09/15/2020 01:15:00 PM EDT [facility] Patient Name: ROGELIO SHANKS DO B: 1945 Sex: M Pt Unit #: [id number] Location:[facility] Provider: Visit Date/Time: 09/15/20 Primary Insurance: MEDICARE [employer] Secondary Insurance: [employer] Intake Vital Signs 09/15/20 13:15 Current [...] Pt takes OTC Tylenol for pain management. Dye House Worker Required: No Accompanied by: Self / Same [...] right foot. He has no other complaints. [facility] Medical History (Updated 09/15/20 @ 14:00 by [...] 2 diabetes mellitus without complications SNOMED Code(s): 952190872 Category: Medical Plan: A1c has risen to 7.6. Patient promises to do better with his diet and exercise regimen. (2) Essential hypertension: Status: Chronic Onset Date: 04/03/16 Code(s): I10 - Essential (primary) hypertension SNOMED Code(s): 02549528 Category: Medical Plan: Blood pressure is well controlled on the current regimen. Patient was advised to follow a low-salt diet. Additional time was spent with the patient discussing the hypertension plan of care. (3) Mixed hyperlipidemia: Status: Chronic Onset Date: 04/03/16 Code(s): E78.2 - Mixed hyperlipidemia SNOMED Code(s): 129176784 Category: Medical Plan: Patient was reminded of the importance of following a low-fat diet. This should also help him lose additional weight. (4) Chronic kidney disease, stage 3b: Status: Acute Code(s): N18.32 - Chronic kidney disease, stage 3b SNOMED Code(s): 124326333 Category: Medical Plan: Creatinine is 2 and GFR is 33. Patient has a solitary kidney. Medication regimen is renally adjusted. (5) Charcot's arthropathy: Status: Acute Code(s): M14.60 - Charcot's joint, unspecified site SNOMED Code(s): 160425336 Category: Medical Plan: Patient's right foot discomfort appears to be secondary to Charcot's arthropathy. He has a design leader involved in his care and will be [...] as appropriate. This document was dictated using [employer] speech recognition software. A reasonable attempt to proofread has been made to minimize errors. Please call if you notice any errors or have any questions. Orders Instructions: DASH Eating Plan (GEN) Hypertension (GEN) Type 2 Diabetes in Adults: New Diagnosis (GEN) Hyperlipidemia (GEN) Impaired Kidney Function (GEN) Follow Up: 3 Months (Annual physical) Coding Level of Care Code 06979 Est Pt Extended Comp Coding comments Coding Comments Additional info for the medical records coder: Patient with complex medical problems including poorly [...] rce(s) Supporting Document(s) ID Date Data Source [id number] 09/13/2020 05:50:00 PM EDT [facility] Name Value Range Interpretation Code Description Data Mallika rce(s) Supporting Document(s) Urea nitrogen [Mass/volume] in Serum or Plasma 29 mg/dL 9-23 Above high normal [facility] Sodium [Moles/volume] in Serum or Plasma 141 mmol/L 132-146 N [facility] Potassium [Moles/volume] in Serum or Plasma 4.0 mmol/L 3.5-5.5 N [facility] Chloride [Moles/volume] in Serum or Plasma 109 mmol/L 99-109 N [facility] Carbon dioxide, total [Moles/volume] in Serum or Plasma 26 mmol/L 20 -31 N [facility] Anion gap in Serum or Plasma 10 mmol/L 8-16 N [facility] Glucose [Mass/volume] in Serum or Plasma 179 mg/dL 74-106 Above high normal [facility] Creatinine 2.0 mg/dL 0.5-1.1 Above high normal [facility] Glomerular filtration rate/1.73 sq M.pre dicted [Volume Rate/Area] in Serum or Plasma 33 ml/min ABOVE 60 [facility] Calcium [Mass/volume] in Serum or Plasma 8.0 mg/dL 8.5-10.1 Below low normal [facility] ID Date Data Source [id number] 09/13/2020 05:53:00 PM EDT [facility] Name Value Range Interpretation Code Description Data Mallika rce(s) Supporting Document(s) Hemoglobin A1c [Mass/volume] in Blood 7.6 % 3.8-5.6 Above hig h normal [facility] The following ranges may be u sed for interpretation of results: HGBA1C degree of glucose control: Greater than 8%: Action Suggested * Less than 7%: Goal of Diabetic Therapy Less than 5.6%: NormalFactors such as duration of diabetes, adherence to therapyand the age of the patient should also be considered inassessing the degree of blood glucose control.* High risk of developing medical terminologist complications such asretinopathy, nephropathy, neuropathy, cardiopathy, etc. Some danger of hypoglycemic reaction in Type I diabetics.Some glucose intolerant individuals and "Sub Clinical"diabetics may demonstrate HGBA1C levels in this area. Glucose mean value [Moles/volume] in Blood Estimated f rom glycated hemoglobin 171 mg/dL [facility] l An A1C of 7% - the goal of diabetic ther apy - is equivalentto an EAG of 154 mg/dl. ID Date Data Source NON SAFETY FIRE BOSS CYTOLOGY REQ FOR SERVI 09/12/2020 12:00:00 AM EDT eC W1 ([facility]) Name Value Range Interpretation Code Description Data Mallika rce(s) Supporting Document(s) URINE eCW1 ([facility]) ID Date Data Source [id number] 06/09/2020 01:03:00 PM EST [facility] Patient Name: ROGELIO SHANKS DO B: 1945 Sex: M Pt Unit #: [id number] Location:[facility] Provider: Visit Date/Time: 06/09/20 Primary Insurance: MEDICARE [employer] Secondary Insurance: [employer] Intake Vital Signs 06/09/20 13:04 Current Height 5 ft 9 in Current Weight 201 lb Weight Measurement Method Standing Scale BMI 29.7 BP 118/70 Blood Pressure Location Lt brachial Position Sitting Pulse 86 Pulse Strength Normal Pulse Source Pulse Oximeter Pulse Oximetry (%) 98 Oxygen Delivery Method room air Intake Visit Reasons: Diabetes Nurse Note: N/C Dye House Worker Required: No Accompanied by: Self / Same [...] least two of the following?: no symptoms PFSH Medical History (Updated 06/09/20 @ 20:29 by [...] 0 : Intact Skin Quality Reporting Adult ([facility] 138/2/22/69/61/64/165) Controlling High BP: No Dialysis care, No Dialysis care assessment, No Dialysis access maint and No Dialysis education Diabetes ([facility] 123/131/134) Visual inspection of feet performed: Yes [...] 2 diabetes mellitus without complications SNOMED Code(s): 245643358 Category: Mike Orozco M.D.: A1c has improved to 7.4. Patient ex pects continued improvement. Medications: Refilled: pen needle, diabetic use with victoza pen. BD 32 gauge x 90 device 3RF (2) Essential hypertension: Status: Chronic Onset Date: 04/03/16 Code(s): I10 - Essential (primary) hypertension SNOMED Code(s): 79038837 Category: Mike Orozco M.D.: Blood pressure is well controlled on the current regimen. Patient was advised to follow a low-salt diet. Additional time was spent with the patient discussing the hypertension plan of care. (3) Mixed hyperlipidemia: Status: Chronic Onset Date: 04/03/16 Code(s): E78.2 - Mixed hyperlipidemia SNOMED Code(s): 450638808 Category: Mike Orozco M.D.: Patient was reminded of the importance of following a low-fat diet. This should also help him lose additional weight. (4) Chronic kidney disease, stage 3b: Status: Acute Code(s): N18.32 - Chronic kidney disease, stage 3b SNOMED Code(s): 746880082 Category: Mike Orozco M.D.: Creatinine is 2 [...] edited asappropriate. This document was dictated using [employer] speech recognition software. A reasonable attempt to proofread has been made to minimize errors. Please call if you notice any errors or have any questions. Orders Follow Up: 3 Months (Diabetes) Time spent Total time spent on medical discussion: 30 Coding Level of Care Code 00638 Est Pt Extended Comp Exam Expanded Problem [...] rce(s) Supporting Document(s) ID Date Data Source [id number] 06/07/2020 10:35:[address] [facility] Name Value Range Interpretation Code Description Data Mallika rce(s) Supporting Document(s) Hemoglobin A1c [Mass/volume] in Blood 7.4 % 3.8-5.6 Above hig h normal [facility] The following ranges may be u sed [...] Estimated f rom glycated hemoglobin 166 mg/dL [facility] l An A1C of 7% - the goal of diabetic ther apy - is equivalentto an EAG of 154 mg/dl. ID Date Data Source [id number] 06/07/2020 10:51:[address] [facility] Name Value Range Interpretation Code Description Data Mallika rce(s) Supporting Document(s) Urea nitrogen [Mass/volume] in Serum or Plasma 46 mg/dL 9-23 Above high normal [facility] Sodium [Moles/volume] in Serum or Plasma 139 mmol/L 132-146 N [facility] Potassium [Moles/volume] in Serum or Plasma 4.4 mmol/L 3.5-5.5 N [facility] Chloride [Moles/volume] in Serum or Plasma 107 mmol/L 99-109 N [facility] Carbon dioxide, total [Moles/volume] in Serum or Plasma 25 mmol/L 20 -31 N [facility] Anion gap in Serum or Plasma 11 mmol/L 8-16 N L [facility] Glucose [Mass/volume] in Serum or Plasma 158 mg/dL 74-106 Above high normal [facility] Creatinine 2.0 mg/dL 0.5-1.1 Above high normal [facility] Glomerular filtration rate/1.73 sq M.pre dicted [Volume Rate/Area] in Serum or Plasma 33 ml/min ABOVE 60 [facility] Calcium [Mass/volume] in Serum or Plasma 8.5 mg/dL 8.5-10.1 N [facility] ID Date Data Source [id number] 03/09/2020 12:45:00 PM EST [facility] Patient Name: ROGELIO SHANKS DO B: 1945 Sex: M Pt Unit #: [id number] Location:[facility] Provider: Visit Date/Time: 03/09/20 Primary Insurance: MEDICARE [facility] Secondary Insurance: [employer] Intake Vital Signs 03/09/20 12:59 Current [...] exam. No active complaints at this time. Dye House Worker Required: No Accompanied by: Self / Same [...] Screening Screening Have you traveled outside of [facility] or [facility] in the last 14 days.: Yes Has patient experienced coronavirus symptoms: No PFSH Medical History Achilles tendinitis Bladder cancer Enlarged [...] with victoza pen. BD 32 gauge x / simvastatin 40 mg PO DAILY Allergies Allergies [...] Home Safety Home Safety: Reports Lighting: Adequate, [place]: No throw rugs and Stairs: Handrail available; [...] Administered by: Domi Santillan on 03/09/20 13:34 Dose Route Admin Location Lot Number Expiration Date [facility] Manufactu rer 0.5 mL IM Left deltoid [id number] 10/05/20 22452-015-37 [employer] VIS Given Date VIS Provided VIS Publication Date 03/09/20 Single Vaccine 18 Eligibility Eligibility Date Funding Source Not [facility] Eligible 03/09/20 Private Assessment Plan Assessment Plan [...] edited asappropriate. This document was dictated using [employer] speech recognition software. A reasonable attempt to proofread has been made to minimize errors. Please call if you notice any errors or have any questions. Orders Other Orders: Orders: INJ - Influenza Vaccine Today Z23 Follow Up: 3 Months (Diabetes) <Electronically signed by Dc Orozco MD> 03/09/20 6958 Name Value Range Interpretation Code Description Data Mallika rce(s) Supporting Document(s) ID Date Data Source [id number] 03/09/2020 10:30:00 AM EST [facility] Method of Collection:: Voided Name Value Range Interpretation Code Description Data [facility] rce(s) Supporting Document(s) Leukocytes [#/volume] in Blood by Automated count 8.5 10*3/uL 4.45-10 .71 N [facility] Erythrocytes [#/volume] in Blood by Automated count 5.45 10*6/uL 4.3- 6.1 N [facility] Hemoglobin [Moles/volume] in Blood 15.2 g/dL 13-18 N [facility] Hematocrit [Volume Fraction] of Blood by Automated count 48.6 % 4 2-52 N [facility] Erythrocyte mean corpuscular volume [Ent itic volume] in Cord blood by Automated count 89.2 fL 80-96 N [facility] Erythrocyte mean corpuscular hemoglobin [Entitic mass] by Automated count 27.9 pg 27-31 N [facility] Erythrocyte mean corpuscular hemoglobin concentration [Mass/volume] in Cord blood 31.3 g/dL 33-37 Below low normal [facility] Erythrocyte distribution width [Entitic volume] by Automated count 14 % 11-15 N [facility] Platelets [#/volume] in Blood by Automated count 222 10*3/uL 130-472 N [facility] Platelet mean volume [Entitic volume] in Blood 10.6 fL 9.1-13.1 N [facility] Neutrophils/100 leukocytes in Blood by Automated count 77.1 % 41-77 Above high normal [facility] Neutrophils [#/volume] in Blood by Automated count 6.5 U 1.7-7.6 N [facility] Lymphocytes/100 leukocytes in Blood by Automated count 16.7 % 14- 46 N [facility] Lymphocytes [#/volume] in Blood by Automated count 1.4 U 0.6-4.6 N [facility] Monocytes/100 leukocytes in Blood by Automated count 5.0 % 4-12 N [facility] Monocytes [#/volume] in Blood by Automated count 0.4 U 0.2-1.2 N [facility] Eosinophils/100 leukocytes in Blood by Automated count 0.8 % 0-7 N [facility] Eosinophils [#/volume] in Blood by Automated count 0.1 U 0.0-0.5 N [facility] Basophils/100 leukocytes in Blood by Automated count 0.2 % 0.4-1.3 Below low normal [facility] Basophils [#/volume] in Blood by Automated count 0.0 U 0.0-0.2 N [facility] NUCLEATED RED BLOOD CELL 0 % [facility] NUCLEATED RED BLOOD CELL# 0 U [facility] Immature granulocytes [Presence] in Blood by Automated count 0-2 N [facility] Immature granulocytes [#/volume] in Blood by Automated count 0.0 U 0-0.1 N [facility] Manual Differential panel - Blood NO [facility] ID Date Data Source [id number] 03/09/2020 10:41:00 AM EST [facility] Method of Collection:: Voided Name Value Range Interpretation Code Description Data Mallika rce(s) Supporting Document(s) Color of Urine [facility] Appearance of Urine CLEAR [facility] pH of Urine by Test strip 6.0 5-8 [facility] Specific gravity of Urine by Refractometry 1.025 1.005-1.030 [facility] Leukocyte esterase [Presence] in Urine by Test strip NEGAT RADHAMES [facility] Nitrite [Presence] in Urine by Test strip NEGATIVE [facility] Protein [Presence] in Urine by Test strip NEGATIVE [facility] Glucose [Mass/volume] in Urine by Automated test strip > 1000 mg /dl NEGATIVE Abnormal (applies to non-numeric results) [facility] Ketones [Presence] in Urine by Test strip NEGATIVE [facility] Urobilinogen [Presence] in Urine 0.2-1 EU/dl [facility] Bilirubin.total [Presence] in Urine by Automated test strip NEGATIVE [facility] Erythrocytes [#/volume] in Urine by Test strip NEGATIVE NEGATIVE [facility] URINE MICROSCOPIC ADDED NO [facility] ID Date Data Source [id number] 03/09/2020 11:06:00 AM EST [facility] Method of Collection:: Voided Name Value Range Interpretation Code Description Data Mallika rce(s) Supporting Document(s) Hemoglobin A1c % 7.9 % 4.0-6.0 Above high normal [facility] The following ranges [...] Estimated f rom glycated hemoglobin 180 mg/dL [facility] An A1C of 7% - the goal of diabetic ther apy - is equivalentto an EAG of 154 mg/dl. ID Date Data Source [id number] 03/09/2020 11:06:[address] [facility] Method of Collection:: Voided Name Value Range Interpretation Code Description Data Mallika rce(s) Supporting Document(s) Urea nitrogen [Mass/volume] in Serum or Plasma 27 mg/dL 9-23 Above high normal [facility] Sodium [Moles/volume] in Serum or Plasma 142 mmol/L 132-146 N [facility] Potassium [Moles/volume] in Serum or Plasma 4.8 mmol/L 3.5-5.5 [facility] Chloride [Moles/volume] in Serum or Plasma 109 mmol/L 99-109 [facility] Carbon dioxide, total [Moles/volume] in Serum or Plasma 28 mmol/L 20 -31 N [facility] Anion gap in Serum or Plasma 10 mmol/L 8-16 N [facility] Glucose [Mass/volume] in Serum or Plasma 123 mg/dL 74-106 Above high normal [facility] Creatinine 1.8 mg/dL 0.5-1.1 Above high normal [facility] Glomerular filtration rate/1.73 sq M.pre dicted [Volume Rate/Area] in Serum or Plasma 37 ml/min ABOVE 60 [facility] Alanine aminotransferase [Enzymatic acti vity/volume] in Serum or Plasma by With P-5'-P 21 U/L 10-49 N [facility] ital Aspartate aminotransferase [Enzymatic ac tivity/volume] in Serum or Plasma by With P-5'-P 16 U/L 0-33 N [facility] pital Alkaline phosphatase [Enzymatic activity/volume] in Serum or Plasma 108 U/L 45-129 [facility] Calcium [Mass/volume] in Serum or Plasma 8.8 mg/dL 8.5-10.1 [facility] Bilirubin.total [Mass/volume] in Serum or Plasma 0.8 mg/dL 0.3-1.2 [facility] Albumin [Mass/volume] in Serum or Plasma by Bromocresol purple (BCP) dye binding method 3.9 g/dL 3.2-4.8 [facility] ital Protein [Mass/volume] in Serum or Plasma 7.7 g/dL 5.7-8.2 [facility] ID Date Data Source [id number] 03/09/2020 11:21:[address] [facility] Method of Collection:: Voided Name Value Range Interpretation Code Description Data Mallika rce(s) Supporting Document(s) Urine Random Creatinine 84.0 mg/dL [facility] THERE IS NO ESTABLISHED RANGE FOR RANDOM URINE CREATININE Urine Microalbumin 22.3 mg/L 0.0-29.9 [facility] Ur Malb/Cre Ratio (ACR) 26.5 ug/mg 0.0-30.0 [facility] ID Date Data Source [id number] 03/09/2020 11:06:[address] [facility] Method of Collection:: Voided Name Value Range Interpretation Code Description Data Mallika rce(s) Supporting Document(s) Triglycerides 213 mg/dL 0-150 Above high normal [facility] Cholesterol 191 mg/dL 120-200 [facility] HDL Cholesterol 45 mg/dL [facility] HDL Less than 40 mg/dL: Major risk for CHDHDL Greater than 59 mg/dL: Low risk for CHD LDL Cholesterol, Calc 104 mg/dL 0-100 Above high normal [facility] Procedure Social History No Information Vital Signs ID Date Data Source UNK Name Value Range Interpretation Code Description Data Source(s) Body weight 210 [lb_av] 210 [lb_av] eCW1 ([facility]) Body height 69 [in_i] 69 [in_i] eCW1 ([facility]) Body mass index (BMI) [Ratio] 31.01 kg/m2 31.01 kg/m2 eCW1 ([facility]) Heart rate 81 /min 81 /min eCW1 ([facility]) Respiratory rate 18 /min 18 /min eCW1 ([facility]) Body temperature 97.5 [degF] 97.5 [degF] eCW1 ( [facility]) Systolic blood pressure 160 mm[Hg] 160 mm[Hg] e CW1 ([facility]) Diastolic blood pressure 48 mm[Hg] 48 mm[Hg] eCW1 ([facility])
== END 2021-03-10 07:17 | disposition left against medical advice (07) ==
LOC: M ED 03:28
DX: Z53.21 Procedure and treatment not carried out due to patient leaving prior to being seen by health care provider (principal)

== ENCOUNTER → 2021-03-16 | Outpatient (REF) | payer MEDICARE, BC, OTHER ==
[~2021-03-16] MED LIST changes: +ACTO15TA19 PO; +LISI10TA22 PO; +PANT40TA29 PO; +SIMV40TA20 PO; +VICT18IN SC; +VITA500045 PO
== END ==
LOC: M LAB REF 17:22
PROVIDERS: ATTEND Internal Medicine Nephrology
DX: E83.42 Hypomagnesemia (principal)

== ENCOUNTER 2021-10-31 22:07 | Emergency (ER) | payer MEDICARE, BC, OTHER ==
[~2021-10-31] VITALS: Ht 175.3 cm; Wt 89.5 kg
[2021-10-31 22:07] VITALS: BP 156/71
== END 2021-10-31 22:37 | disposition left against medical advice (07) ==
LOC: M ED 22:07
DX: Z53.21 Procedure and treatment not carried out due to patient leaving prior to being seen by health care provider (principal)

== ENCOUNTER → 2021-11-06 | Outpatient (REF) | payer MEDICARE, OTHER | LOC: M SMT 13:28 | PROVIDERS: ATTEND Urology | DX: Z85.51 Personal history of malignant neoplasm of bladder (principal) ==

== ENCOUNTER → 2022-12-21 | Outpatient (REF) | payer MEDICARE, OTHER ==
[~2022-12-21] MED LIST changes: +GLIP5TAB8 PO; +JARD1TAB3 PO; +LISI5TAB11 PO; +OYST500T92 PO
== END ==
LOC: M SMT 16:55
PROVIDERS: ATTEND Urology
DX: Z85.51 Personal history of malignant neoplasm of bladder (principal)

== ENCOUNTER 2023-04-13 15:23 | Emergency (ER) | payer MEDICARE, OTHER, BC ==
[~2023-04-13] VITALS: Ht 175.3 cm; Wt 84.2 kg
[2023-04-13 15:23] VITALS: BP 119/58; TEMP 97.1; O2SAT 97
[~2023-04-13 15:23] MED LIST changes: +GLIP5TAB17 PO; -GLIP5TAB8 PO
[2023-04-13 16:57] LABS: BASO % 0.5 % (0.0-1.0); EOS # 0.1 10^3/uL (0.0-0.5); EOS % 1.5 % (0.0-3.0); HEMATOCRIT 41.2 % (42.0-52.0); HEMOGLOBIN 13.4 g/dl (13.5-17.5); LYMPH # 1.3 10^3/uL (1.5-5.0); LYMPH % 21.5 % (24.0-44.0); MEAN CORPUSCULAR HEMOGLOBIN 29.5 pg (27.0-33.0); MEAN CORPUSCULAR HGB CONC 32.5 g/dl (32.0-36.5); MEAN CORPUSCULAR VOLUME 90.5 fl (80.0-96.0); MONO # 0.5 10^3/uL (0.0-0.8); NEUTROPHILS % 68.3 % (36.0-66.0); PLATELET COUNT, AUTOMATED 216 10^3/uL (150-450); RED BLOOD COUNT 4.55 10^6/uL (4.30-6.10); WHITE BLOOD COUNT 5.9 10^3/uL (4.0-10.0)
[2023-04-13 17:32] LABS: ALBUMIN 3.6 G/DL (3.2-5.2); ALKALINE PHOSPHATASE 90 U/L (46-116); ALT/SGPT < 9 U/L (7.0-40); AST/SGOT 9 U/L (<34); BILIRUBIN,DIRECT 0.1 MG/DL (<0.4); BILIRUBIN,TOTAL 0.4 MG/DL (0.3-1.2); BLOOD UREA NITROGEN 44 MG/DL (9-23); CALCIUM LEVEL 8.4 MG/DL (8.3-10.6); CARBON DIOXIDE LEVEL 25 MMOL/L (20-31); CHLORIDE LEVEL 107 MMOL/L (98-107); CK-MB VALUE MASS < 1.0 NG/ML (<3.6); CREATININE FOR GFR 1.81 MG/DL (0.70-1.30); GLOMERULAR FILTRATION RATE 38.7 (>42); GLUCOSE, FASTING 157 MG/DL (74-106); POTASSIUM SERUM 4.8 MMOL/L (3.5-5.1); SODIUM LEVEL 137 MMOL/L (136-145); TOTAL PROTEIN 6.8 G/DL (5.7-8.2)
[2023-04-13 17:34] LABS: THYROID STIMULATING HORMONE 2.526 uIU/ML (0.55-4.78)
[2023-04-13 17:36] LABS: CPK CREATINE PHOSPHOKINASE 143 U/L (46-171); MB/CK RELATIVE INDEX 0.69 (< OR =4)
== END 2023-04-13 18:51 | disposition home or self-care (01) ==
LOC: M ED 15:23
DX: R42 Dizziness and giddiness (principal); E11.9 Type 2 diabetes mellitus without complications; I10 Essential (primary) hypertension; K21.9 Gastro-esophageal reflux disease without esophagitis; Z87.09 Personal history of other diseases of the respiratory system; Z85.51 Personal history of malignant neoplasm of bladder; Z79.4 Long term (current) use of insulin; Z79.899 Other long term (current) drug therapy

== ENCOUNTER 2024-03-19 16:29 | Emergency (ER) | payer MEDICARE, OTHER, BC ==
[~2024-03-19] VITALS: Ht 172.7 cm; Wt 84.2 kg
[2024-03-19 16:42] VITALS: TEMP 96.4
[2024-03-19] MEDS ORDERED: LISI2.5T9 (16:48)
[2024-03-19] MEDS ORDERED: LIRA0.6P (16:48)
[2024-03-19] MEDS: ASPIRIN 81MG CHEW TABLET PO ONE (17:50)
[2024-03-19 18:03] LABS: BASO % 0.2 % (0.0-1.0); EOS # 0.1 10^3/uL (0.0-0.5); EOS % 0.8 % (0.0-3.0); HEMATOCRIT 44.7 % (42.0-52.0); HEMOGLOBIN 14.5 g/dl (13.5-17.5); LYMPH % 12.5 % (24.0-44.0); MEAN CORPUSCULAR HEMOGLOBIN 28.2 pg (27.0-33.0); MEAN CORPUSCULAR HGB CONC 32.4 g/dl (32.0-36.5); MEAN CORPUSCULAR VOLUME 86.8 fl (80.0-96.0); MONO # 0.4 10^3/uL (0.0-0.8); MONO % 4.6 % (2.0-8.0); NEUTROPHILS # 6.8 10^3/uL (1.5-8.5); NEUTROPHILS % 81.7 % (36.0-66.0); PLATELET COUNT, AUTOMATED 228 10^3/uL (150-450); RED BLOOD COUNT 5.15 10^6/uL (4.30-6.10); WHITE BLOOD COUNT 8.3 10^3/uL (4.0-10.0)
[2024-03-19 18:16] LABS: INR 0.97; PARTIAL THROMBOPLASTIN TIME 32.3 SECONDS (24.8-34.2); PROTHROMBIN TIME 13.2 SECONDS (12.5-14.5)
[2024-03-19 18:21] LABS: CALCIUM LEVEL 8.8 MG/DL (8.3-10.6); CK-MB VALUE MASS 1.5 NG/ML (<3.6); CREATININE FOR GFR 1.74 MG/DL (0.70-1.30); GLOMERULAR FILTRATION RATE 40.4 (>35); POTASSIUM SERUM 4.1 MMOL/L (3.5-5.1)
[2024-03-19 18:23] LABS: MB/CK RELATIVE INDEX 0.83 (< OR =4)
[2024-03-19 19:12] LABS: CK-MB VALUE MASS 1.5 NG/ML (<3.6)
[2024-03-19 19:17] LABS: MB/CK RELATIVE INDEX 0.86 (< OR =4)
[2024-03-19 21:49] LABS: CK-MB VALUE MASS 1.4 NG/ML (<3.6)
[2024-03-19 21:52] LABS: MB/CK RELATIVE INDEX 0.86 (< OR =4)
[2024-03-19 22:00] VITALS: BP 147/66; O2SAT 98
[2024-03-19] MEDS ORDERED: ATEN25TA PO (22:08)
[2024-03-19] MEDS: atenoloL 25 MG TAB PO ONE (22:15)
== END 2024-03-19 22:29 | disposition home or self-care (01) ==
LOC: M ED 16:29 → EDBD 16:29 → M ED 22:29
DX: R07.9 Chest pain, unspecified (principal); R42 Dizziness and giddiness; I45.10 Unspecified right bundle-branch block; I10 Essential (primary) hypertension; E78.5 Hyperlipidemia, unspecified; K21.9 Gastro-esophageal reflux disease without esophagitis; N40.0 Benign prostatic hyperplasia without lower urinary tract symptoms; Z85.51 Personal history of malignant neoplasm of bladder

== ENCOUNTER → 2024-03-23 | Outpatient (REF) | payer MEDICARE, OTHER, BC ==
[~2024-03-23] MED LIST changes: +ATEN25TA PO; +LIRA0.6P; +LISI2.5T9
== END ==
LOC: M SMT 15:16
PROVIDERS: ATTEND Urology
DX: Z85.51 Personal history of malignant neoplasm of bladder (principal)

== ENCOUNTER 2024-07-14 03:58 | Observation (INO) | payer MEDICARE, BC ==
[~2024-07-14] VITALS: Ht 175.3 cm; Wt 85.0 kg
[~2024-07-14 03:58] MED LIST changes: -LIRA0.6P; +LIRA0.6P INJ
[2024-07-14 04:40] LABS: VENOUS BASE EXCESS -6.5 (-2.0-2.0); VENOUS HCO3 19.6 MMOL/L (23.0-27.0); VENOUS O2 SATURATION 66.8 % (60.0-80.0); VENOUS PARTIAL PRESSURE CO2 41.5 mmHg (38.0-50.0); VENOUS PARTIAL PRESSURE O2 37.6 mmHg (30.0-50.0); VENOUS PH 7.293 UNITS (7.330-7.430); VENOUS STANDARD HCO3 18.5 MMOL/L; VENOUS TOTAL CO2 20.9 MMOL/L (24.0-28.0)
[2024-07-14] MEDS: NS (Normal Saline) 0.9% 1,000 ML IV ONE ×2 (04:44→12:25)
[2024-07-14 04:48] LABS: BASO # 0.1 10^3/uL (0.0-0.2); BASO % 0.5 % (0.0-1.0); EOS # 0.2 10^3/uL (0.0-0.5); EOS % 1.7 % (0.0-3.0); HEMATOCRIT 43.8 % (42.0-52.0); HEMOGLOBIN 14.5 g/dl (13.5-17.5); LYMPH # 2.9 10^3/uL (1.5-5.0); LYMPH % 28.6 % (24.0-44.0); MEAN CORPUSCULAR HGB CONC 33.1 g/dl (32.0-36.5); MEAN CORPUSCULAR VOLUME 87.6 fl (80.0-96.0); MONO # 0.7 10^3/uL (0.0-0.8); MONO % 6.9 % (2.0-8.0); NEUTROPHILS # 6.3 10^3/uL (1.5-8.5); PLATELET COUNT, AUTOMATED 215 10^3/uL (150-450); WHITE BLOOD COUNT 10.1 10^3/uL (4.0-10.0)
[2024-07-14 05:07] LABS: CK-MB VALUE MASS 1.2 NG/ML (<3.6)
[2024-07-14 05:08] LABS: ETHYL ALCOHOL (ETHANOL) 0.003 % (0.000-0.010)
[2024-07-14 05:09] LABS: SALICYLATE LEVEL < 3.0 MG/DL (<30)
[2024-07-14 05:10] LABS: ALBUMIN 3.6 G/DL (3.2-5.2); ALKALINE PHOSPHATASE 94 U/L (40-129); ALT/SGPT 14 U/L (7.0-40); AST/SGOT 14 U/L (<34); BILIRUBIN,DIRECT 0.1 MG/DL (<0.4); BILIRUBIN,TOTAL 0.5 MG/DL (0.3-1.2); BLOOD UREA NITROGEN 39 MG/DL (9-23); CALCIUM LEVEL 8.5 MG/DL (8.3-10.6); CARBON DIOXIDE LEVEL 21 MMOL/L (20-31); CHLORIDE LEVEL 107 MMOL/L (98-107); CREATININE FOR GFR 2.02 MG/DL (0.70-1.30); GLOMERULAR FILTRATION RATE 32.7 (>35); GLUCOSE, FASTING 204 MG/DL (74-106); POTASSIUM SERUM 4.8 MMOL/L (3.5-5.1); SODIUM LEVEL 141 MMOL/L (136-145)
[2024-07-14 05:11] LABS: THYROID STIMULATING HORMONE 19.479 uIU/ML (0.55-4.78)
[2024-07-14 05:13] LABS: CPK CREATINE PHOSPHOKINASE 92 U/L (46-171)
[2024-07-14 05:29] LABS: OSMOLALITY SERUM 318 MOSM/KG (280-301)
[2024-07-14 05:49] LABS: FREE T4 1.04 NG/DL (0.89-1.76)
[2024-07-14 06:54] LABS: CK-MB VALUE MASS < 1.0 NG/ML (<3.6)
[2024-07-14 06:55] LABS: CPK CREATINE PHOSPHOKINASE 77 U/L (46-171); MB/CK RELATIVE INDEX 1.29 (< OR =4)
[2024-07-14] MEDS: LIDOCAINE 2% 5ML JELLY UROJET TOP ONE (07:10)
[2024-07-14 07:20] LABS: KETONE, URINE AUTO RFX NEGATIVE (NEGATIVE); LEUKOCYTE ESTERASE UR AUTO RFX NEGATIVE (NEGATIVE); NITRITE, URINE AUTO RFX NEGATIVE (NEGATIVE); RBC, URINE AUTO RFX 0 /HPF (0-3); SQUAM EPITHELIAL CELL UR AURFX 0 /HPF (0-6); WBC, URINE AUTO RFX 0 /HPF (0-3)
[2024-07-14 07:44] LABS: AMPHETAMINES LEVEL URINE NEGATIVE (NEGATIVE); BARBITURATES URINE NEGATIVE (NEGATIVE); BENZODIAZEPINES URINE NEGATIVE (NEGATIVE); CANNABINOIDS URINE NEGATIVE (NEGATIVE); COCAINE METABOLITE URINE NEGATIVE (NEGATIVE); PHENCYCLIDINE URINE NEGATIVE (NEGATIVE)
[2024-07-14 07:45] LABS: METHADONE URINE NEGATIVE (NEGATIVE); OPIATES URINE NEGATIVE (NEGATIVE)
[2024-07-14] MEDS: LORazepam 2 MG/ML 1ML VIAL IV STA (09:04)
[2024-07-14] MEDS ORDERED: SILD50TA PO (11:18)
[2024-07-14] MEDS ORDERED: DOCU250C7 PO (11:18)
[2024-07-14] MEDS ORDERED: ASPI81TA26 PO (11:18)
[2024-07-14] MEDS ORDERED: ACET-683 PO (11:19)
[2024-07-14] MEDS ORDERED: TAMS-18 PO (11:19)
[2024-07-14] MEDS ORDERED: CLOP75TA2 PO (11:20)
[2024-07-14] MEDS ORDERED: ATOR80TA59 PO (11:23)
[2024-07-14] MEDS ORDERED: HOME MED LIST COMPLETE! XX SCH (11:25)
[2024-07-14] MEDS ORDERED: ACETAMINOPHEN 325 MG TAB PO PRN (12:15)
[2024-07-14] MEDS ORDERED: MOM 30ML SUSPENSION UDC PO PRN (12:15)
[2024-07-14] MEDS ORDERED: MAALOX 30 ML SUSP *UDC PO PRN (12:15)
[2024-07-14] MEDS ORDERED: GLUCOSE 4 GM CHEW PO PRN (12:25)
[2024-07-14] MEDS ORDERED: GLUCAGON INJ 1MG VIAL SC PRN (12:25)
[2024-07-14] MEDS ORDERED: DEXTROSE 50% 50ML SYRINGE IV PRN (12:25)
[2024-07-14] MEDS: HEPARIN SOD 5000UNITS/ML 1ML VIAL/SYRINGE SC SCH (14:00)
[2024-07-14] MEDS: INSULIN LISPRO (NovoLOG) PER UNIT SC SCH ×2 (17:30→20:52)
[2024-07-14] MEDS: glipiZIDE 5 MG TAB PO SCH (18:38)
[2024-07-15 00:48] VITALS: BP 123/54; TEMP 98.2; O2SAT 97
[2024-07-15 03:25] VITALS: BP 136/65; TEMP 98.1; O2SAT 98
[2024-07-15 05:23] LABS: CALCIUM LEVEL 7.9 MG/DL (8.3-10.6); CREATININE FOR GFR 1.65 MG/DL (0.70-1.30); GLOMERULAR FILTRATION RATE 41.7 (>35); POTASSIUM SERUM 4.2 MMOL/L (3.5-5.1)
[2024-07-15] MEDS: PANTOPRAZOLE 40MG TAB PO SCH (08:58)
[2024-07-15] MEDS: ATORVASTATIN 20 MG TAB PO SCH (08:58)
[2024-07-15] MEDS: ASPIRIN 81MG ENTERIC TABLET PO SCH (08:58)
[2024-07-15] MEDS: TAMSULOSIN 0.4 MG CAP PO SCH (08:59)
[2024-07-15] MEDS: DOCUSATE SOD LIQ 100MG/10ML UDC PO SCH (09:00)
[2024-07-15] MEDS ORDERED: LISI5TAB11 PO (11:28)
== END 2024-07-15 12:43 | disposition home or self-care (01) ==
LOC: M ED 03:58 → EDBD 03:58 → M ED INP 03:59 → M MSPAV 07-15 00:37
PROVIDERS: ADMIT Student in an Organized Health Care Education/Training Program; ATTEND Student in an Organized Health Care Education/Training Program
DX: N17.9 Acute kidney failure, unspecified (principal); N18.9 Chronic kidney disease, unspecified; Z90.5 Acquired absence of kidney; R53.1 Weakness; R42 Dizziness and giddiness; I12.9 Hypertensive chronic kidney disease with stage 1 through stage 4 chronic kidney disease, or unspecified chronic kidney disease; I95.9 Hypotension, unspecified; Z85.51 Personal history of malignant neoplasm of bladder; Z90.6 Acquired absence of other parts of urinary tract; E78.5 Hyperlipidemia, unspecified; K21.9 Gastro-esophageal reflux disease without esophagitis; E11.22 Type 2 diabetes mellitus with diabetic chronic kidney disease; Z86.73 Personal history of transient ischemic attack (TIA), and cerebral infarction without residual deficits; Z90.79 Acquired absence of other genital organ(s); Z82.49 Family history of ischemic heart disease and other diseases of the circulatory system; Z79.899 Other long term (current) drug therapy; Z79.82 Long term (current) use of aspirin; Z79.02 Long term (current) use of antithrombotics/antiplatelets
CPT/HCPCS: 36415; 70450; 70544; 70547; 70551; 71045; 80047; 80048; 80076; 80143; 80307; 81001; 82077; 82140; 82330; 82550; 82553; 82803; 83605; 83930; 84439; 84443; 84484; 85025; 87040; 87486; 87581; 87633; 87798; 93005; 93041; 93306; 94760; 96372; 96374; 97161; 99285; G0378; J2060

== ENCOUNTER 2024-07-28 11:39 | Emergency (ER) | payer MEDICARE, BC ==
[~2024-07-28] VITALS: Ht 175.3 cm; Wt 86.4 kg
[~2024-07-28 11:39] MED LIST changes: +ACET-683 PO; +ASPI81TA26 PO; +ATOR80TA59 PO; +CLOP75TA2 PO; +DOCU250C7 PO; +SILD50TA PO; +TAMS-18 PO
[2024-07-28 11:54] VITALS: O2SAT 97
[2024-07-28 12:21] LABS: BASO % 0.2 % (0.0-1.0); EOS # 0.1 10^3/uL (0.0-0.5); HEMATOCRIT 44.1 % (42.0-52.0); HEMOGLOBIN 14.1 g/dl (13.5-17.5); LYMPH # 1.3 10^3/uL (1.5-5.0); LYMPH % 16.4 % (24.0-44.0); MEAN CORPUSCULAR HEMOGLOBIN 28.4 pg (27.0-33.0); MEAN CORPUSCULAR VOLUME 88.7 fl (80.0-96.0); MONO # 0.5 10^3/uL (0.0-0.8); MONO % 5.5 % (2.0-8.0); NEUTROPHILS # 6.2 10^3/uL (1.5-8.5); NEUTROPHILS % 76.8 % (36.0-66.0); PLATELET COUNT, AUTOMATED 183 10^3/uL (150-450); RED BLOOD COUNT 4.97 10^6/uL (4.30-6.10); WHITE BLOOD COUNT 8.1 10^3/uL (4.0-10.0)
[2024-07-28 12:50] LABS: ALBUMIN 3.6 G/DL (3.2-5.2); BILIRUBIN,DIRECT 0.2 MG/DL (<0.4); BILIRUBIN,TOTAL 0.7 MG/DL (0.3-1.2); CALCIUM LEVEL 8.5 MG/DL (8.3-10.6); CREATININE FOR GFR 1.77 MG/DL (0.70-1.30); GLOMERULAR FILTRATION RATE 38.4 (>35); TOTAL PROTEIN 6.9 G/DL (5.7-8.2)
[2024-07-28 12:52] VITALS: BP 117/75
[2024-07-28 12:53] LABS: THYROID STIMULATING HORMONE 4.6 uIU/ML (0.55-4.78)
== END 2024-07-28 13:39 | disposition home or self-care (01) ==
LOC: M ED 11:39
DX: R42 Dizziness and giddiness (principal); E11.9 Type 2 diabetes mellitus without complications; I10 Essential (primary) hypertension; E78.5 Hyperlipidemia, unspecified; Z79.1 Long term (current) use of non-steroidal anti-inflammatories (NSAID); Z79.84 Long term (current) use of oral hypoglycemic drugs; Z79.899 Other long term (current) drug therapy

== ENCOUNTER → 2025-03-15 | Outpatient (REF) | payer MEDICARE, OTHER ==
[~2025-03-15] MED LIST changes: +ERGO125013 PO; -VITA500045 PO
[2025-03-15 18:27] LABS: APPEARANCE, URINE CLOUDY (CLEAR); BACTERIA, URINE AUTO NEGATIVE (NEGATIVE); BILIRUBIN, URINE AUTO NEGATIVE (NEGATIVE); BLOOD, URINE BLOOD 3+ (NEGATIVE); GLUCOSE, URINE (UA) AUTO 3+ mg/dL (NEGATIVE); KETONE, URINE AUTO NEGATIVE (NEGATIVE); LEUKOCYTE ESTERASE, URINE AUTO 2+ (NEGATIVE); NITRITE, URINE AUTO POSITIVE (NEGATIVE); PROTEIN, URINE AUTO 2+ mg/dL (NEGATIVE); RBC, URINE AUTO 143 /HPF (0-3); SPECIFIC GRAVITY URINE AUTO 1.022 (1.002-1.035); SQUAMOUS EPITHELIAL CELL UR AU 0 /HPF (0-6); UROBILINOGEN, URINE AUTO 0.2 mg/dL (0.0-2.0); WBC, URINE AUTO TNTC /HPF (0-3)
== END ==
LOC: M LAB REF 17:00
PROVIDERS: ATTEND Physician Assistant Medical
DX: N39.0 Urinary tract infection, site not specified (principal)

== ENCOUNTER → 2025-03-29 | Outpatient (REF) | payer MEDICARE, OTHER, BC ==
[2025-03-29 14:17] LABS: APPEARANCE, URINE CLEAR (CLEAR); BACTERIA, URINE AUTO NEGATIVE (NEGATIVE); BILIRUBIN, URINE AUTO NEGATIVE (NEGATIVE); BLOOD, URINE BLOOD 2+ (NEGATIVE); GLUCOSE, URINE (UA) AUTO 3+ mg/dL (NEGATIVE); KETONE, URINE AUTO NEGATIVE (NEGATIVE); LEUKOCYTE ESTERASE, URINE AUTO NEGATIVE (NEGATIVE); NITRITE, URINE AUTO NEGATIVE (NEGATIVE); PROTEIN, URINE AUTO NEGATIVE (NEGATIVE); RBC, URINE AUTO 2 /HPF (0-3); SPECIFIC GRAVITY URINE AUTO 1.025 (1.002-1.035); SQUAMOUS EPITHELIAL CELL UR AU 0 /HPF (0-6); UROBILINOGEN, URINE AUTO 0.2 mg/dL (0.0-2.0); WBC, URINE AUTO 1 /HPF (0-3)
== END ==
LOC: M SMT 13:03
PROVIDERS: ATTEND Urology
DX: N39.0 Urinary tract infection, site not specified (principal)